=== PATIENT | female | born 1935 | race Native Hawaiian/Other Pacific Islander ===

== ENCOUNTER 2016-02-08 09:08 | Inpatient (IN) | payer OTHER | END 2016-03-10 08:00 | disposition still patient (30) | LOC: PAVB 09:08 | PROVIDERS: ADMIT Internal Medicine | DX: Z51.89 Encounter for other specified aftercare (principal) ==

== ENCOUNTER → 2016-04-10 10:55 | Inpatient (IN) | payer OTHER ==
[~2016-04-10 10:55] MED LIST: ALEN70TA19 PO; AMLO2.5T PO; ASCO500T18 PO; CALCIUM + D600 MG PO; CREON24000 UNT PO; DIPH2.5T76 PO; DIVA500T2 PO; EVISTA60 MG PO; GABA300C2 PO; LEVE500T5 PO; LEVO0.0218 PO; METO25TA4 PO; MV-ONE PO; OMEP20CA PO; TOBRSUS OP; TYLENOL325 MG PO; VITAMIN D31000 UNI1 PO
== END | disposition still patient (30) ==
LOC: PAVB 03-10 09:00
PROVIDERS: ADMIT Internal Medicine
DX: Z51.89 Encounter for other specified aftercare (principal)

== ENCOUNTER 2016-04-10 11:48 | Inpatient (IN) | payer OTHER ==
[2016-05-03] MEDS ORDERED: ALEN70TA19 PO (04:43)
[2016-05-03] MEDS ORDERED: AMLO2.5T PO (04:43)
[2016-05-03] MEDS ORDERED: CREON24000 UNT PO (04:48)
[2016-05-03] MEDS ORDERED: DIVA500T2 PO (04:53)
[2016-05-03] MEDS ORDERED: LEVE500T5 PO (04:54)
[2016-05-03] MEDS ORDERED: GABA300C2 PO (04:54)
[2016-05-03] MEDS ORDERED: METO25TA4 PO (04:55)
[2016-05-03] MEDS ORDERED: LEVO0.0218 PO (04:55)
[2016-05-03] MEDS ORDERED: OMEP20CA PO (04:56)
[2016-05-03] MEDS ORDERED: EVISTA60 MG PO (04:56)
[2016-05-03] MEDS ORDERED: VITAMIN D31000 UNI1 PO (04:58)
[2016-05-03] MEDS ORDERED: CALCIUM + D600 MG PO (04:59)
[2016-05-03] MEDS ORDERED: TYLENOL325 MG PO (05:00)
[2016-05-03] MEDS ORDERED: MV-ONE PO (05:02)
[2016-05-03] MEDS ORDERED: ASCO500T18 PO (05:03)
[2016-05-03] MEDS ORDERED: DIPH2.5T76 PO (05:09)
[2016-05-03] MEDS ORDERED: TOBRSUS OP (05:12)
== END 2016-05-08 12:35 | disposition still patient (30) ==
LOC: PAVB 11:48
PROVIDERS: ADMIT Internal Medicine
DX: J18.9 Pneumonia, unspecified organism (principal); F03.90 Unspecified dementia, unspecified severity, without behavioral disturbance, psychotic disturbance, mood disturbance, and anxiety; G40.89 Other seizures; N18.3 Chronic kidney disease, stage 3 (moderate); E03.9 Hypothyroidism, unspecified

== ENCOUNTER 2016-05-03 02:55 | Inpatient (IN) | payer OTHER ==
[2016-05-03] VITALS (21 sets, daily range): BP systolic 84–167; BP diastolic 40–98; TEMP 96.1–101.8
[~2016-05-03] VITALS: Ht 142.2 cm; Wt 50.9 kg
[2016-05-03] MEDS ORDERED: AMLO2.5T PO (04:43)
[2016-05-03] MEDS ORDERED: ALEN70TA19 PO (04:43)
[2016-05-03] MEDS ORDERED: CREON24000 UNT PO (04:48)
[2016-05-03] MEDS ORDERED: DIVA500T2 PO (04:53)
[2016-05-03] MEDS ORDERED: GABA300C2 PO (04:54)
[2016-05-03] MEDS ORDERED: LEVE500T5 PO (04:54)
[2016-05-03] MEDS ORDERED: LEVO0.0218 PO (04:55)
[2016-05-03] MEDS ORDERED: METO25TA4 PO (04:55)
[2016-05-03] MEDS ORDERED: EVISTA60 MG PO (04:56)
[2016-05-03] MEDS ORDERED: OMEP20CA PO (04:56)
[2016-05-03] MEDS ORDERED: VITAMIN D31000 UNI1 PO (04:58)
[2016-05-03] MEDS ORDERED: CALCIUM + D600 MG PO (04:59)
[2016-05-03] MEDS ORDERED: TYLENOL325 MG PO (05:00)
[2016-05-03] MEDS ORDERED: MV-ONE PO (05:02)
[2016-05-03] MEDS ORDERED: ASCO500T18 PO (05:03)
[2016-05-03] MEDS ORDERED: DIPH2.5T76 PO (05:09)
[2016-05-03] MEDS ORDERED: TOBRSUS OP (05:12)
--- NOTE | 2016-05-03 06:47 | NUR ---
0445- Received pt from ER via stretcher. Pt alert and oriented. Vent mask in place at 40%. NS bolus infusing to LAC via 20g. No s/s of infiltration. Assessment completed. No distress noted at this time. Pt febrile. Exp wheezing noted throughout lung muhammad. VSS per monitor. HOB elevated. Resp even and non labored. Bed in lowest position. Call light within reach. Will continue to monitor.
--- NOTE | 2016-05-03 09:15 | NUR ---
ASSISTED PT OOB UP TO BSC TO VOID, TOLERATED WELL
--- NOTE | 2016-05-03 09:40 | NUR ---
ATTEMPT LAB DRAW W/O SUCCESS.
--- NOTE | 2016-05-03 10:15 | NUR ---
LAB CALLED TO OBTAIN BLOOD, STATED THEY WERE UNABLE TO DRAW AT THIS TIME. MED SURG CALLED.
--- NOTE | 2016-05-03 10:40 | NUR ---
YOMAIRA BELLAMY RN OBTAINED BLOOD DRAW
--- NOTE | 2016-05-03 11:00 | NUR ---
SATS 98% ON VENTI MASK, PT PLACED ON NC @ 2L AT THIS TIME. WILL CONT TOO MONITOR.
[2016-05-03 11:02] LABS: PLATELET COUNT 134 K/uL (152-353)
--- NOTE | 2016-05-03 11:21 | NUR ---
NURSE PUT PATIENT ON NASAL CANNULA AT 2LPM AT 1100. SPO2 95%. NO DISTRESS NOTED.
[2016-05-03 13:04] LABS: SODIUM 136 mmol/L (136-145)
--- NOTE | 2016-05-03 14:15 | NUR ---
ASSISTED PT UP TO BSC, PT CONFUSED BY ALL THE WIRES.
--- NOTE | 2016-05-03 16:00 | NUR ---
PT SHAKING, STATED THAT SHES COLD. TEMP 100.
--- NOTE | 2016-05-03 16:00 | NUR ---
AYANA CUNNINGHAM APPLIED PER SERENA LEE PCT, PT TOLERATED WELL.
--- NOTE | 2016-05-03 16:43 | NUR ---
SPUTUM SAMPLE COLLECTED AND TAKEN TO LAB PER RESP TH. BREATHING TX GIVEN PER R.T., PT TOLERATED WELL. FAMILY AT BS
--- NOTE | 2016-05-03 17:15 | NUR ---
HR INCREASED 155, PT SHAKING EXCESSIVELY
--- NOTE | 2016-05-03 17:25 | NUR ---
EKG DONE PER R.T.
--- NOTE | 2016-05-03 17:30 | NUR ---
BS 144
--- NOTE | 2016-05-03 17:30 | NUR ---
TEMP 100.3 ORAL
--- NOTE | 2016-05-03 17:35 | NUR ---
DR DESOUZA CALLED AND GIVEN UPDATE, NEW ORDERS RECIEVED.
--- NOTE | 2016-05-03 17:52 | NUR ---
ASSISTED PT UP TO BSC, HR 146
[2016-05-03 18:01] LABS: PLATELET COUNT 145 K/uL (152-353)
--- NOTE | 2016-05-03 18:20 | NUR ---
RAMILA (PTS NEICE) CALLED AND GIVEN UPDATE ON PTS STATUS, INCREASE IN HR AFTER RECIEVING BREATHING TX AND MEDS GIVEN.
--- NOTE | 2016-05-03 18:51 | NUR ---
HR 117, ST. SATS 97% ON 3L NC, BP 123/55. PT AROUSES TO VERBAL, TEMP 99.8 ORAL. PT HAS STOPPED SHAKING, FACIAL FLUSHING.
--- NOTE | 2016-05-03 21:24 | NUR ---
NS STARTED ON PT DE JESUS. INFUSING AT 150 ML/HR.
[2016-05-04] VITALS (22 sets, daily range): BP systolic 90–135; BP diastolic 40–76; TEMP 98.2–98.8
--- NOTE | 2016-05-04 00:18 | NUR ---
PT CONTINUES TO REST QUIETLY. PT WEARING OXYGEN AT 3L VIA NASAL CANNULA. IVF'S OF NS INFUSING AT 150 ML/HR. SR ON CM. OT US UB WITHPNEUMONIA, DEHYDRATION, AND HYPOXIA. PT IS MR AND HAS HX OF DEMENTIA. AYANA CUNNINGHAM ARE ON.
--- NOTE | 2016-05-04 02:04 | NUR ---
OXYGEN SATS ARE 97 WHNEPT COUGHS AND DEEP BREATHS.
--- NOTE | 2016-05-04 03:47 | NUR ---
PT WAS UP OUT OF BED WITH ASSISTANCE TO BSC. VOIDED 800 ML OF YELLOW URINE. ASSISTED BACK TO BED. PT WAS GIVEN WATER TO DRINK. O2 SATS ARE IMPROVED AT 93 TO 94 PERCENT. CM WITH SR.
[2016-05-04 05:24] LABS: PLATELET COUNT 126 K/uL (152-353)
[2016-05-04 05:41] LABS: POTASSIUM 3.5 mmol/L (3.6-5.2)
--- NOTE | 2016-05-04 05:53 | NUR ---
BLOOD WAS COLLECTED PER LAB.
--- NOTE | 2016-05-04 08:00 | NUR ---
AM ASSESSMENT DONE. NAD NOTED AT THIS TIME.
--- NOTE | 2016-05-04 08:30 | NUR ---
PT STATED SHE DIDN'T WANT BREAKFAST SHE WANTED TO SLEEP.
--- NOTE | 2016-05-04 09:30 | NUR ---
PT UP TO BSC. PT VOIDED. PT BACK TO BED.
--- NOTE | 2016-05-04 10:03 | NUR ---
PT RESTING QUIETLY WITH EYES CLOSED. WILL CONTINUE TO MONITOR.
--- NOTE | 2016-05-04 10:20 | NUR ---
RAD HERE FOR CHEST XRAY. FAMILY AT BEDSIDE.
--- NOTE | 2016-05-04 11:41 | NUR ---
FAMILY AT BEDSIDE. PT DRINKING A MILKSHAKE.
--- NOTE | 2016-05-04 12:35 | NUR ---
DR. DESOUZA HERE TO SEE PT.
--- NOTE | 2016-05-04 14:00 | NUR ---
FAMILY AT BEDSIDE.
--- NOTE | 2016-05-04 15:11 | NUR ---
PT RESTING QUIETLY WITH EYES CLOSED. WILL CONTINUE TO MONITOR.
--- NOTE | 2016-05-04 16:15 | NUR ---
FAMILY AT BEDSIDE. FAMILY BROUGHT PIZZA FOR PT. PT EATING PIZZA.
--- NOTE | 2016-05-04 20:04 | NUR ---
PM ASSESSMENT COMPLETED. SINUS TACH AT 106 ON CM. PT AROUSES EASILY. RESP EVEN AND UNLORED. PT COUGHS OCCASSIONALLY.
--- NOTE | 2016-05-04 20:46 | NUR ---
PT UP WITH ASSISTANCE TO THE BSC. VOIDED 400 ML OF CLEAR URINE. LINENS WERE CHANGED AT THIS TIME. PERICARE GIVEN. CLEAN UNDERGARMENTS AND CLEAN PJ TOP WERE PLACED ON. REPOSITIONED PT IN BED IN LOW POSITION AND SOFT NIGHT LIGHT ON.
--- NOTE | 2016-05-04 21:07 | NUR ---
PT COUGHING. MEDICATED WITH TUSSINEX 5 ML PO.
--- NOTE | 2016-05-04 23:02 | NUR ---
EYE DROP TOBRAMYCIN. UNABLE TO SCAN.
[2016-05-05] VITALS (15 sets, daily range): BP systolic 106–132; BP diastolic 58–76; TEMP 98.1–98.9
--- NOTE | 2016-05-05 04:39 | NUR ---
PT IS SALINED LOCK AND IS NOT RECEIVING IVF. IVF D5 NOT SCANNED.
[2016-05-05 06:27] LABS: PLATELET COUNT 143 K/uL (152-353)
--- NOTE | 2016-05-05 06:27 | NUR ---
BLOOD WAS DRAWN AND SENT TO LAB. NOTED PT WITH BRUISES TO HER RIGHT FOREARM FROM PRIOR NEEDLE STICKS. THIS STICK WAS DONE TO PT'S LEFT HAND. PT WAS THEN ASSISTED TO BSC AND VOIDED 500 ML OF URINE. PT WAS ASSITED BACK TO BED AND POSITIONED IN BED.
[2016-05-05 06:36] LABS: POTASSIUM 3.3 mmol/L (3.6-5.2)
--- NOTE | 2016-05-05 07:34 | NUR ---
AM ASSESSMENT DONE.
--- NOTE | 2016-05-05 09:19 | NUR ---
PT TOOK AM MEDS BUT DID NOT WANT TO EAT BREAKFAST.
--- NOTE | 2016-05-05 09:59 | NUR ---
FAMILY AT BEDSIDE.
--- NOTE | 2016-05-05 11:00 | NUR ---
PT UP TO BSC. ASSISTED PT BACK TO BED.
--- NOTE | 2016-05-05 11:33 | NUR ---
FAMILY AT BEDSIDE. NAD NOTED AT THIS TIME.
--- NOTE | 2016-05-05 12:18 | NUR ---
PT SITTING UP EATING LUNCH. FAMILY AT BEDSIDE.
--- NOTE | 2016-05-05 12:20 | NUR ---
DR. DESOUZA HERE TO SEE PT.
--- NOTE | 2016-05-05 14:30 | NUR ---
PT UP TO BSC. PT BACK TO BED.
--- NOTE | 2016-05-05 15:50 | NUR ---
PT RESTING QUIETLY WITH EYES CLOSED.
--- NOTE | 2016-05-05 17:26 | NUR ---
PT TRANSFERRED TO ROOM 1108 VIA WC IN STABLE COND. ORIENTED PT TO ROOM SURROUNDINGS AND CALL LIGHT.
[2016-05-06 00:10] VITALS: BP 130/59; TEMP 98.7
[2016-05-06 04:18] VITALS: BP 123/72; TEMP 98.6
[2016-05-06 08:18] VITALS: BP 131/69; TEMP 97.6
--- NOTE | 2016-05-06 08:31 | NUR ---
05/06/16 AT 0605ATTEMPTED TO FLUSH 20G IV IN R FA, NOTED LEAKING, TIGHTENED IV HUB AND IV SITE NOTED TO BE LEAKING FROM AROUND INSERTION SITE AND PAINFUL PER PT. IV REMOVED AT THIS TIME. ATTEMPTED TO FLUSH 20G IV IN L AC, NOTED LEAKING FROM AROUND INSERTION SITE, IV REMOVED AT THIS TIME. PT TOLERATED BOTH WITH NO PROBLEMS. WILL OBTAIN NEW IV SITE AND IVPB MEDICATIONS WILL BE GIVEN ONE IV IS OBTAINED.
--- NOTE | 2016-05-06 09:20 | NUR ---
05/06/[id number] TO START NEW IV SITE X1 STICK, UNABLE TO OBTAIN SITE.
[2016-05-06 10:26] LABS: POTASSIUM 4.1 mmol/L (3.6-5.2)
[2016-05-06 11:05] LABS: PLATELET COUNT 161 K/uL (152-353)
[2016-05-06 12:03] VITALS: BP 111/63; TEMP 98.6
--- NOTE | 2016-05-06 13:21 | NUR ---
REPORT GIVEN TO ARTIS KELLER ON [facility] AT [place]. PT GIVEN BATH PER STUDENTS. PT OUT VIA W/C WITH NAD. IV SITE LEFT INTACT AND WRAPPED WITH MESERET DUE TO PT [facility]
== END 2016-05-06 13:15 | DRG 194 ==
LOC: EDP 02:55 → ICU 04:14 → MED/SURG 05-05 17:26
PROVIDERS: Emergency Medicine; ADMIT Specialist
DX: J18.9 Pneumonia, unspecified organism (principal); G40.802 Other epilepsy, not intractable, without status epilepticus; Y95 Nosocomial condition; D72.828 Other elevated white blood cell count; E11.9 Type 2 diabetes mellitus without complications; D75.89 Other specified diseases of blood and blood-forming organs; E83.42 Hypomagnesemia; E87.6 Hypokalemia; I95.89 Other hypotension; E86.0 Dehydration
CPT/HCPCS: 36415; 36591; 36600; 80048; 80053; 80164; 81000; 82542; 82550; 82553; 82607; 82805; 82948; 82962; 83605; 83735; 83880; 84100; 84443; 84484; 85027; 85610; 87040; 87070; 87205; 93005; 94664; 94760; 96361; 96365; 96372; 99285; J0610; J0696; J1720; J2060

== ENCOUNTER 2016-05-08 12:55 | Inpatient (IN) | payer OTHER | END 2016-06-08 08:11 | disposition still patient (30) | LOC: PAVB 12:55 | PROVIDERS: ADMIT Internal Medicine | DX: Z51.89 Encounter for other specified aftercare (principal) ==

== ENCOUNTER 2016-05-10 18:45 | Outpatient (CLI) | payer OTHER | END 2016-05-10 19:50 | disposition home or self-care (01) | LOC: RAD 18:45 | DX: J18.8 Other pneumonia, unspecified organism (principal) ==

== ENCOUNTER 2016-06-08 09:11 | Inpatient (IN) | payer OTHER | END 2016-07-08 08:30 | disposition still patient (30) | LOC: PAVB 09:11 → PAVA 06-14 10:49 | PROVIDERS: ADMIT Internal Medicine | DX: Z51.89 Encounter for other specified aftercare (principal) ==

== ENCOUNTER 2016-06-11 05:45 | Outpatient (CLI) | payer OTHER ==
[2016-06-11 07:02] LABS: PLATELET COUNT 191 K/uL (152-353)
[2016-06-11 10:39] LABS: POTASSIUM 3.8 mmol/L (3.6-5.2)
== END 2016-06-11 06:45 | disposition home or self-care (01) ==
LOC: LAB 05:45
PROVIDERS: Internal Medicine
DX: E03.8 Other specified hypothyroidism (principal); Z51.81 Encounter for therapeutic drug level monitoring; I12.9 Hypertensive chronic kidney disease with stage 1 through stage 4 chronic kidney disease, or unspecified chronic kidney disease; N18.3 Chronic kidney disease, stage 3 (moderate)
CPT/HCPCS: 80053; 80164; 82306; 82542; 84443; 85027

== ENCOUNTER 2016-07-01 16:52 | Outpatient (CLI) | payer OTHER | END 2016-07-01 19:36 | disposition home or self-care (01) | LOC: LAB 16:52 | DX: Z16.24 Resistance to multiple antibiotics (principal) | CPT/HCPCS: 87081 ==

== ENCOUNTER 2016-07-08 08:47 | Inpatient (IN) | payer OTHER | END 2016-08-08 08:10 | disposition still patient (30) | LOC: PAVA 08:47 | PROVIDERS: ADMIT Internal Medicine | DX: Z51.89 Encounter for other specified aftercare (principal) ==

== ENCOUNTER 2016-08-08 08:24 | Inpatient (IN) | payer OTHER | END 2016-09-07 14:57 | disposition still patient (30) | LOC: PAVA 08:24 | PROVIDERS: ADMIT Internal Medicine | DX: Z51.89 Encounter for other specified aftercare (principal) ==

== ENCOUNTER 2016-09-07 15:08 | Inpatient (IN) | payer OTHER | END 2016-10-08 08:33 | disposition still patient (30) | LOC: PAVA 15:08 | PROVIDERS: ADMIT Internal Medicine | DX: Z51.89 Encounter for other specified aftercare (principal) ==

== ENCOUNTER 2016-10-08 09:11 | Inpatient (IN) | payer OTHER | END 2016-11-08 08:10 | disposition still patient (30) | LOC: PAVA 09:11 | PROVIDERS: ADMIT Internal Medicine | DX: Z51.89 Encounter for other specified aftercare (principal) ==

== ENCOUNTER 2016-11-08 08:26 | Inpatient (IN) | payer OTHER | END 2016-12-08 09:08 | disposition still patient (30) | LOC: PAVA 08:26 | PROVIDERS: ADMIT Internal Medicine | DX: Z51.89 Encounter for other specified aftercare (principal) ==

== ENCOUNTER 2016-12-08 09:22 | Inpatient (IN) | payer OTHER | END 2017-01-08 10:24 | disposition still patient (30) | LOC: PAVA 09:22 | PROVIDERS: ADMIT Internal Medicine ==

== ENCOUNTER 2016-12-09 06:07 | Outpatient (CLI) | payer OTHER ==
[2016-12-09 07:34] LABS: PLATELET COUNT 189 K/uL (152-353)
[2016-12-09 07:58] LABS: POTASSIUM 4.6 mmol/L (3.6-5.2)
== END 2016-12-09 07:10 | disposition home or self-care (01) ==
LOC: LAB 06:07
PROVIDERS: Internal Medicine
DX: I10 Essential (primary) hypertension (principal); E03.8 Other specified hypothyroidism; Z51.81 Encounter for therapeutic drug level monitoring; N18.3 Chronic kidney disease, stage 3 (moderate)
CPT/HCPCS: 36415; 80053; 80164; 82306; 82542; 84443; 85027

== ENCOUNTER 2017-01-08 12:22 | Inpatient (IN) | payer OTHER | END 2017-02-07 08:12 | disposition still patient (30) | LOC: PAVA 12:22 | PROVIDERS: ADMIT Internal Medicine ==

== ENCOUNTER 2017-02-07 08:53 | Inpatient (IN) | payer OTHER | END 2017-03-10 08:29 | disposition still patient (30) | LOC: PAVA 08:53 | PROVIDERS: ADMIT Internal Medicine ==

== ENCOUNTER 2017-03-07 14:00 | Outpatient (CLI) | payer OTHER | END 2017-03-07 22:14 | disposition home or self-care (01) | LOC: RAD 14:00 | DX: J06.9 Acute upper respiratory infection, unspecified (principal) ==

== ENCOUNTER 2017-03-10 09:05 | Inpatient (IN) | payer OTHER | END 2017-04-10 08:30 | disposition still patient (30) | LOC: PAVA 09:05 | PROVIDERS: ADMIT Internal Medicine ==

== ENCOUNTER 2017-04-10 09:27 | Inpatient (IN) | payer OTHER | END 2017-05-08 08:07 | disposition still patient (30) | LOC: PAVA 09:27 | PROVIDERS: ADMIT Internal Medicine ==

== ENCOUNTER 2017-05-08 08:46 | Inpatient (IN) | payer OTHER | END 2017-06-08 08:00 | disposition still patient (30) | LOC: PAVA 08:46 | PROVIDERS: ADMIT Internal Medicine ==

== ENCOUNTER 2017-06-08 09:00 | Inpatient (IN) | payer OTHER | END 2017-07-08 08:11 | disposition still patient (30) | LOC: PAVA 09:00 | PROVIDERS: ADMIT Internal Medicine ==

== ENCOUNTER 2017-07-08 08:43 | Inpatient (IN) | payer OTHER | END 2017-08-08 08:20 | disposition still patient (30) | LOC: PAVA 08:43 | PROVIDERS: ADMIT Internal Medicine ==

== ENCOUNTER 2017-08-08 08:35 | Inpatient (IN) | payer OTHER | END 2017-09-07 14:14 | disposition still patient (30) | LOC: PAVA 08:35 | PROVIDERS: ADMIT Internal Medicine ==

== ENCOUNTER 2017-09-07 14:29 | Inpatient (IN) | payer OTHER | END 2017-10-08 08:00 | disposition still patient (30) | LOC: PAVA 14:29 | PROVIDERS: ADMIT Internal Medicine ==

== ENCOUNTER 2017-10-08 09:00 | Inpatient (IN) | payer OTHER | END 2017-11-08 09:56 | disposition still patient (30) | LOC: PAVA 09:00 | PROVIDERS: ADMIT Internal Medicine ==

== ENCOUNTER 2017-11-08 10:07 | Inpatient (IN) | payer OTHER | END 2017-12-08 08:39 | disposition still patient (30) | LOC: PAVA 10:07 | PROVIDERS: ADMIT Internal Medicine ==

== ENCOUNTER 2017-12-08 06:44 | Outpatient (CLI) | payer OTHER ==
[2017-12-08 07:50] LABS: PLATELET COUNT 210 K/uL (152-353)
[2017-12-08 08:06] LABS: POTASSIUM 4.4 mmol/L (3.6-5.2)
== END 2017-12-08 19:51 | disposition home or self-care (01) ==
LOC: LAB 06:44
PROVIDERS: Internal Medicine
DX: R79.89 Other specified abnormal findings of blood chemistry (principal); G40.909 Epilepsy, unspecified, not intractable, without status epilepticus; R94.6 Abnormal results of thyroid function studies
CPT/HCPCS: 80053; 80164; 82306; 82542; 82607; 84443; 85027

== ENCOUNTER 2017-12-08 08:56 | Inpatient (IN) | payer OTHER | END 2018-01-08 08:10 | disposition still patient (30) | LOC: PAVA 08:56 | PROVIDERS: ADMIT Internal Medicine ==

== ENCOUNTER 2017-12-28 12:44 | Emergency (ER) | payer OTHER ==
[~2017-12-28] VITALS: Ht 149.9 cm; Wt 52.2 kg
[2017-12-28 12:44] VITALS: TEMP 97.9
[2017-12-28 15:15] VITALS: BP 137/72
== END 2017-12-28 15:15 | disposition home or self-care (01) ==
LOC: ED 12:44
DX: S60.221A Contusion of right hand, initial encounter (principal); S80.01XA Contusion of right knee, initial encounter; S00.83XA Contusion of other part of head, initial encounter; W10.1XXA Fall (on)(from) sidewalk curb, initial encounter; Y92.511 Restaurant or cafe as the place of occurrence of the external cause
CPT/HCPCS: 99283

== ENCOUNTER 2018-01-01 16:26 | Outpatient (CLI) | payer OTHER | END 2018-01-01 19:49 | disposition home or self-care (01) | LOC: LAB 16:26 | DX: Z91.81 History of falling (principal) | CPT/HCPCS: 81000 ==

== ENCOUNTER 2018-01-08 04:19 | Outpatient (CLI) | payer OTHER | END 2018-01-08 21:48 | disposition home or self-care (01) | LOC: LAB 04:19 | DX: R94.6 Abnormal results of thyroid function studies (principal) | CPT/HCPCS: 84443 ==

== ENCOUNTER 2018-01-08 08:24 | Inpatient (IN) | payer OTHER | END 2018-02-07 08:04 | disposition still patient (30) | LOC: PAVA 08:24 | PROVIDERS: ADMIT Internal Medicine ==

== ENCOUNTER 2018-02-07 08:16 | Inpatient (IN) | payer OTHER | END 2018-03-10 10:20 | disposition still patient (30) | LOC: PAVA 08:16 | PROVIDERS: ADMIT Internal Medicine ==

== ENCOUNTER 2018-02-13 11:42 | Outpatient (CLI) | payer OTHER | END 2018-02-13 23:13 | disposition home or self-care (01) | LOC: RAD 11:42 | DX: Z78.0 Asymptomatic menopausal state (principal) ==

== ENCOUNTER 2018-03-10 10:45 | Inpatient (IN) | payer OTHER | END 2018-04-10 14:16 | disposition still patient (30) | LOC: PAVA 10:45 | PROVIDERS: ADMIT Internal Medicine ==

== ENCOUNTER 2018-04-10 14:31 | Inpatient (IN) | payer OTHER | END 2018-05-08 09:14 | disposition still patient (30) | LOC: PAVA 14:31 | PROVIDERS: ADMIT Internal Medicine ==

== ENCOUNTER 2018-05-08 09:43 | Inpatient (IN) | payer OTHER | END 2018-06-08 07:54 | disposition still patient (30) | LOC: PAVA 09:43 | PROVIDERS: ADMIT Internal Medicine ==

== ENCOUNTER 2018-06-08 08:28 | Inpatient (IN) | payer OTHER | END 2018-07-08 09:38 | disposition still patient (30) | LOC: PAVA 08:28 | PROVIDERS: ADMIT Internal Medicine ==

== ENCOUNTER 2018-06-11 05:42 | Outpatient (CLI) | payer OTHER ==
[2018-06-11 06:29] LABS: PLATELET COUNT 223 K/uL (152-353)
[2018-06-11 06:50] LABS: POTASSIUM 4.4 mmol/L (3.6-5.2)
== END 2018-06-11 19:09 | disposition home or self-care (01) ==
LOC: LAB 05:42
PROVIDERS: Internal Medicine
DX: Z51.89 Encounter for other specified aftercare (principal); G40.89 Other seizures; I10 Essential (primary) hypertension; E03.8 Other specified hypothyroidism; N18.3 Chronic kidney disease, stage 3 (moderate); M85.80 Other specified disorders of bone density and structure, unspecified site
CPT/HCPCS: 80053; 80164; 82306; 82542; 84443; 85027

== ENCOUNTER 2018-07-08 10:43 | Inpatient (IN) | payer OTHER | END 2018-08-08 08:12 | disposition still patient (30) | LOC: PAVA 10:43 | PROVIDERS: ADMIT Internal Medicine | DX: Z51.89 Encounter for other specified aftercare (principal) ==

== ENCOUNTER 2018-07-24 14:48 | Outpatient (CLI) | payer OTHER | END 2018-07-24 19:41 | disposition home or self-care (01) | LOC: US 14:48 | DX: M79.661 Pain in right lower leg (principal); R22.41 Localized swelling, mass and lump, right lower limb ==

== ENCOUNTER 2018-07-28 12:31 | Outpatient (CLI) | payer OTHER | END 2018-07-28 19:24 | disposition home or self-care (01) | LOC: LAB 12:31 | DX: D51.8 Other vitamin B12 deficiency anemias (principal) | CPT/HCPCS: 82607 ==

== ENCOUNTER 2018-08-08 08:24 | Inpatient (IN) | payer OTHER | END 2018-09-07 08:29 | disposition still patient (30) | LOC: PAVA 08:24 | PROVIDERS: ADMIT Internal Medicine ==

== ENCOUNTER 2018-09-07 09:10 | Inpatient (IN) | payer OTHER | END 2018-10-08 09:07 | disposition still patient (30) | LOC: PAVA 09:10 | PROVIDERS: ADMIT Internal Medicine ==

== ENCOUNTER 2018-10-08 09:49 | Inpatient (IN) | payer OTHER | END 2018-11-08 15:57 | disposition still patient (30) | LOC: PAVA 09:49 | PROVIDERS: ADMIT Internal Medicine ==

== ENCOUNTER 2018-11-08 16:14 | Inpatient (IN) | payer OTHER | END 2018-12-08 08:04 | disposition still patient (30) | LOC: PAVA 16:14 | PROVIDERS: ADMIT Internal Medicine ==

== ENCOUNTER 2018-12-08 08:57 | Inpatient (IN) | payer OTHER | END 2019-01-08 08:51 | disposition still patient (30) | LOC: PAVA 08:57 | PROVIDERS: ADMIT Internal Medicine ==

== ENCOUNTER 2018-12-09 06:40 | Outpatient (CLI) | payer OTHER ==
[2018-12-09 07:15] LABS: PLATELET COUNT 57 K/uL (152-353)
[2018-12-09 07:59] LABS: POTASSIUM 4.7 mmol/L (3.6-5.2)
== END 2018-12-09 23:47 | disposition home or self-care (01) ==
LOC: LAB 06:40
PROVIDERS: Internal Medicine
DX: I10 Essential (primary) hypertension (principal); Z79.899 Other long term (current) drug therapy
CPT/HCPCS: 80053; 80164; 82306; 82542; 84443; 85027

== ENCOUNTER 2019-01-08 10:51 | Inpatient (IN) | payer OTHER | END 2019-02-07 08:00 | disposition still patient (30) | LOC: PAVA 10:51 | PROVIDERS: ADMIT Internal Medicine ==

== ENCOUNTER 2019-02-07 08:30 | Inpatient (IN) | payer OTHER | END 2019-03-10 07:59 | disposition still patient (30) | LOC: PAVA 08:30 | PROVIDERS: ADMIT Internal Medicine ==

== ENCOUNTER 2019-03-10 08:22 | Inpatient (IN) | payer OTHER | END 2019-04-10 09:30 | disposition still patient (30) | LOC: PAVA 08:22 | PROVIDERS: ADMIT Internal Medicine ==

== ENCOUNTER 2019-04-10 09:43 | Inpatient (IN) | payer OTHER | END 2019-05-09 12:44 | disposition still patient (30) | LOC: PAVA 09:43 | PROVIDERS: ADMIT Internal Medicine ==

== ENCOUNTER 2019-05-09 12:58 | Inpatient (IN) | payer OTHER | END 2019-06-09 08:58 | disposition still patient (30) | LOC: PAVA 12:58 | PROVIDERS: ADMIT Internal Medicine ==

== ENCOUNTER 2019-06-09 09:18 | Inpatient (IN) | payer OTHER | END 2019-07-09 08:02 | disposition still patient (30) | LOC: PAVA 09:18 | PROVIDERS: ADMIT Internal Medicine ==

== ENCOUNTER 2019-07-08 12:56 | Outpatient (CLI) | payer OTHER | END 2019-07-08 20:42 | disposition home or self-care (01) | LOC: LABW 12:56 | DX: R10.9 Unspecified abdominal pain (principal); R82.998 Other abnormal findings in urine | CPT/HCPCS: 81000 ==

== ENCOUNTER 2019-07-09 08:33 | Inpatient (IN) | payer OTHER | END 2019-08-09 08:11 | disposition still patient (30) | LOC: PAVA 08:33 | PROVIDERS: ADMIT Internal Medicine | CPT/HCPCS: 87635; U0002 ==

== ENCOUNTER 2019-07-27 10:57 | Outpatient (CLI) | payer OTHER ==
[2019-07-27 11:16] LABS: PLATELET COUNT 230 K/uL (152-353)
[2019-07-27 11:17] LABS: POTASSIUM 3.6 mmol/L (3.6-5.2)
== END 2019-07-27 19:11 | disposition home or self-care (01) ==
LOC: LAB 10:57
PROVIDERS: Nurse Practitioner
DX: U07.1 COVID-19 (principal); Z79.899 Other long term (current) drug therapy
CPT/HCPCS: 80053; 85027; 85379

== ENCOUNTER 2019-08-09 08:23 | Inpatient (IN) | payer OTHER | END 2019-09-08 08:25 | disposition still patient (30) | LOC: PAVA 08:23 | PROVIDERS: ADMIT Internal Medicine ==

== ENCOUNTER 2019-09-08 08:55 | Inpatient (IN) | payer OTHER | END 2019-10-09 08:22 | disposition still patient (30) | LOC: PAVA 08:55 | PROVIDERS: ADMIT Internal Medicine ==

== ENCOUNTER 2019-10-09 08:50 | Inpatient (IN) | payer OTHER ==
[2019-11-09] MEDS ORDERED: DIVALPROEX500 MG PO (13:03)
[2019-11-09] MEDS ORDERED: DIVA250T2 PO (13:04)
[2019-11-09] MEDS ORDERED: LEVO0.0529 PO (13:10)
[2019-11-09] MEDS ORDERED: AMLODIPINE BESYLATE PO (13:18)
[2019-11-09] MEDS ORDERED: XARELTO15 MG PO (13:22)
[2019-11-09] MEDS ORDERED: CEFUROXIME500 MG PO (13:34)
[2019-11-09] MEDS ORDERED: MEGACE PO (13:36)
[2019-11-09] MEDS ORDERED: [UNRECOGNIZED DRUG - OTHER] PO (13:37)
[2019-11-09] MEDS ORDERED: HEALTHY EYES PO (13:37)
[2019-11-09] MEDS ORDERED: ENSURE PLUS PO (13:39)
[2019-11-09] MEDS ORDERED: AZIT250T3 PO (13:55)
== END 2019-11-09 10:40 | disposition still patient (30) ==
LOC: PAVA 08:50
PROVIDERS: ADMIT Internal Medicine

== ENCOUNTER 2019-10-25 07:35 | Outpatient (CLI) | payer OTHER ==
[2019-10-25 15:31] LABS: POTASSIUM 3.8 mmol/L (3.6-5.2)
== END 2019-10-25 20:23 | disposition home or self-care (01) ==
LOC: LAB 07:35 → RAD 07:35
PROVIDERS: Internal Medicine
DX: M79.652 Pain in left thigh (principal); R60.0 Localized edema; I82.401 Acute embolism and thrombosis of unspecified deep veins of right lower extremity
CPT/HCPCS: 80048

== ENCOUNTER 2019-10-25 19:40 | Outpatient (CLI) | payer OTHER | END 2019-10-25 21:32 | disposition home or self-care (01) | LOC: LAB 19:40 | DX: I82.401 Acute embolism and thrombosis of unspecified deep veins of right lower extremity (principal) | CPT/HCPCS: 82570 ==

== ENCOUNTER 2019-10-31 10:46 | Outpatient (CLI) | payer OTHER ==
[2019-10-31 11:22] LABS: PLATELET COUNT 389 K/uL (152-353)
[2019-10-31 11:28] LABS: POTASSIUM 4.1 mmol/L (3.6-5.2)
== END 2019-10-31 22:36 | disposition home or self-care (01) ==
LOC: RAD 10:46 → LABW 10:46 → RAD 22:36
PROVIDERS: Internal Medicine
DX: R14.0 Abdominal distension (gaseous) (principal); I82.492 Acute embolism and thrombosis of other specified deep vein of left lower extremity; J18.9 Pneumonia, unspecified organism
CPT/HCPCS: 80053; 83630; 85007; 85027; 87324; 87328; 87329; 87449

== ENCOUNTER 2019-11-02 13:27 | Inpatient (IN) | payer OTHER ==
[~2019-11-02] VITALS: Ht 172.7 cm; Wt 56.7 kg
[2019-11-02 18:26] LABS: PLATELET COUNT 394 K/uL (152-353)
[2019-11-02 18:39] LABS: POTASSIUM 4.1 mmol/L (3.6-5.2)
[2019-11-02 19:06] VITALS: BP 119/57; TEMP 98.2; Ht 172.7 cm; Wt 56.7 kg
[2019-11-02 19:36] VITALS: BP 111/55; TEMP 98.3
[2019-11-03] VITALS (7 sets, daily range): BP systolic 102–116; BP diastolic 48–59; TEMP 97.5–99.6
[2019-11-03 05:57] LABS: POTASSIUM 3.8 mmol/L (3.6-5.2)
[2019-11-03 06:10] LABS: PLATELET COUNT 372 K/uL (152-353)
[2019-11-04 04:00] VITALS: BP 93/40; TEMP 98.3
[2019-11-04 05:10] LABS: POTASSIUM 3.8 mmol/L (3.6-5.2)
[2019-11-04 05:44] LABS: PLATELET COUNT 356 K/uL (152-353)
[2019-11-04 08:00] VITALS: BP 158/53; TEMP 98.1
[2019-11-04 12:00] VITALS: BP 123/66; TEMP 98.2
[2019-11-04 16:00] VITALS: BP 114/56; TEMP 98.6
[2019-11-04 20:00] VITALS: BP 124/61; TEMP 98.1
[2019-11-05] VITALS: BP 117/55; TEMP 98.1
[2019-11-05 04:00] VITALS: BP 139/58; TEMP 98.3
[2019-11-05 04:38] LABS: POTASSIUM 4.3 mmol/L (3.6-5.2)
[2019-11-05 05:18] LABS: PLATELET COUNT 378 K/uL (152-353)
[2019-11-05 07:40] VITALS: BP 101/51; TEMP 98.5
[2019-11-05 12:00] VITALS: BP 109/57; TEMP 98.1
[2019-11-05 15:47] VITALS: BP 125/54; TEMP 98.4
[2019-11-05 20:00] VITALS: BP 119/56; TEMP 98.3
[2019-11-06] VITALS (7 sets, daily range): BP systolic 96–116; BP diastolic 37–72; TEMP 97.4–98.7
[2019-11-06 06:02] LABS: PLATELET COUNT 399 K/uL (152-353)
[2019-11-06 06:03] LABS: POTASSIUM 4.1 mmol/L (3.6-5.2)
[2019-11-07 03:58] VITALS: BP 110/59; TEMP 98.2
[2019-11-07 06:22] LABS: PLATELET COUNT 332 K/uL (152-353); POTASSIUM 3.3 mmol/L (3.6-5.2)
[2019-11-07 08:00] VITALS: BP 106/50; TEMP 98.2
[2019-11-07 11:57] VITALS: BP 112/49; TEMP 97.5
[2019-11-07 16:00] VITALS: BP 112/55; TEMP 98.3
[2019-11-07 20:00] VITALS: BP 104/44; TEMP 97.5
[2019-11-08] VITALS: BP 93/30; TEMP 97.9
[2019-11-08 04:00] VITALS: BP 108/56; TEMP 97.5
[2019-11-08 05:37] LABS: POTASSIUM 3.7 mmol/L (3.6-5.2)
[2019-11-08 05:40] LABS: PLATELET COUNT 370 K/uL (152-353)
[2019-11-08 08:00] VITALS: BP 108/45; TEMP 97.5
[2019-11-08 12:00] VITALS: BP 105/46; TEMP 97.9
[2019-11-08 16:00] VITALS: BP 107/47; TEMP 97.9
[2019-11-08 20:00] VITALS: BP 114/55; TEMP 98.8
[2019-11-09 00:14] VITALS: BP 138/60; TEMP 98.9
[2019-11-09 04:02] VITALS: BP 111/50; TEMP 98.3
[2019-11-09 08:00] VITALS: BP 122/51; TEMP 98.5
[2019-11-09 12:00] VITALS: BP 125/46; TEMP 98.2
[2019-11-09] MEDS ORDERED: DIVALPROEX500 MG PO (13:03)
[2019-11-09] MEDS ORDERED: DIVA250T2 PO (13:04)
[2019-11-09] MEDS ORDERED: LEVO0.0529 PO (13:10)
[2019-11-09] MEDS ORDERED: AMLODIPINE BESYLATE PO (13:18)
[2019-11-09] MEDS ORDERED: XARELTO15 MG PO (13:22)
[2019-11-09] MEDS ORDERED: CEFUROXIME500 MG PO (13:34)
[2019-11-09] MEDS ORDERED: MEGACE PO (13:36)
[2019-11-09] MEDS ORDERED: [UNRECOGNIZED DRUG - OTHER] PO (13:37)
[2019-11-09] MEDS ORDERED: HEALTHY EYES PO (13:37)
[2019-11-09] MEDS ORDERED: ENSURE PLUS PO (13:39)
[2019-11-09] MEDS ORDERED: AZIT250T3 PO (13:55)
== END 2019-11-09 15:10 | DRG 193 ==
LOC: RAD 13:27 → MED/SURG 17:10
PROVIDERS: Internal Medicine Endocrinology, Diabetes & Metabolism; ADMIT Internal Medicine
DX: J18.8 Other pneumonia, unspecified organism (principal); J96.01 Acute respiratory failure with hypoxia; E43 Unspecified severe protein-calorie malnutrition; G40.802 Other epilepsy, not intractable, without status epilepticus; N17.8 Other acute kidney failure; I82.4Z2 Acute embolism and thrombosis of unspecified deep veins of left distal lower extremity; E03.8 Other specified hypothyroidism; K21.9 Gastro-esophageal reflux disease without esophagitis; F03.90 Unspecified dementia, unspecified severity, without behavioral disturbance, psychotic disturbance, mood disturbance, and anxiety; K86.89 Other specified diseases of pancreas; I12.9 Hypertensive chronic kidney disease with stage 1 through stage 4 chronic kidney disease, or unspecified chronic kidney disease; N18.3 Chronic kidney disease, stage 3 (moderate)
CPT/HCPCS: 36415; 80048; 80053; 83605; 83880; 84443; 85007; 85027; 87040; 94760; J1956; J2020; J2543

== ENCOUNTER 2019-11-09 11:20 | Inpatient (IN) | payer OTHER ==
[2019-11-09] MEDS ORDERED: DIVALPROEX500 MG PO (13:03)
[2019-11-09] MEDS ORDERED: DIVA250T2 PO (13:04)
[2019-11-09] MEDS ORDERED: LEVO0.0529 PO (13:10)
[2019-11-09] MEDS ORDERED: AMLODIPINE BESYLATE PO (13:18)
[2019-11-09] MEDS ORDERED: XARELTO15 MG PO (13:22)
[2019-11-09] MEDS ORDERED: CEFUROXIME500 MG PO (13:34)
[2019-11-09] MEDS ORDERED: MEGACE PO (13:36)
[2019-11-09] MEDS ORDERED: [UNRECOGNIZED DRUG - OTHER] PO (13:37)
[2019-11-09] MEDS ORDERED: HEALTHY EYES PO (13:37)
[2019-11-09] MEDS ORDERED: ENSURE PLUS PO (13:39)
[2019-11-09] MEDS ORDERED: AZIT250T3 PO (13:55)
[2019-11-19 16:33] LABS: PLATELET COUNT 412 K/uL (152-353)
== END 2019-12-09 09:28 | disposition still patient (30) ==
LOC: PAVA 11:20
PROVIDERS: ADMIT Internal Medicine
DX: J18.9 Pneumonia, unspecified organism (principal); I82.402 Acute embolism and thrombosis of unspecified deep veins of left lower extremity; M62.81 Muscle weakness (generalized); R26.2 Difficulty in walking, not elsewhere classified; Z74.1 Need for assistance with personal care; F03.90 Unspecified dementia, unspecified severity, without behavioral disturbance, psychotic disturbance, mood disturbance, and anxiety; G40.909 Epilepsy, unspecified, not intractable, without status epilepticus; F33.9 Major depressive disorder, recurrent, unspecified; M85.80 Other specified disorders of bone density and structure, unspecified site; N18.3 Chronic kidney disease, stage 3 (moderate); I12.9 Hypertensive chronic kidney disease with stage 1 through stage 4 chronic kidney disease, or unspecified chronic kidney disease
CPT/HCPCS: 81000; 82272; 83630; 85027; 87015; 87045; 87324; 87328; 87329; 87449; 87899

== ENCOUNTER 2019-12-09 10:48 | Inpatient (IN) | payer OTHER ==
[~2019-12-09 10:48] MED LIST changes: +AMLODIPINE BESYLATE PO; +AZIT250T3 PO; +CEFUROXIME500 MG PO; +DIVA250T2 PO; +DIVALPROEX500 MG PO; +ENSURE PLUS PO; +HEALTHY EYES PO; +LEVO0.0529 PO; +MEGACE PO; +XARELTO15 MG PO; +[UNRECOGNIZED DRUG - OTHER] PO
[2019-12-12 07:46] LABS: PLATELET COUNT 238 K/uL (152-353)
[2019-12-12 10:03] LABS: POTASSIUM 4.1 mmol/L (3.6-5.2)
== END 2020-01-09 08:00 | disposition still patient (30) ==
LOC: PAVA 10:48
PROVIDERS: ADMIT Internal Medicine
DX: J18.9 Pneumonia, unspecified organism (principal); I82.402 Acute embolism and thrombosis of unspecified deep veins of left lower extremity; M62.81 Muscle weakness (generalized); R26.2 Difficulty in walking, not elsewhere classified; Z74.1 Need for assistance with personal care; F03.90 Unspecified dementia, unspecified severity, without behavioral disturbance, psychotic disturbance, mood disturbance, and anxiety; G40.909 Epilepsy, unspecified, not intractable, without status epilepticus; F33.9 Major depressive disorder, recurrent, unspecified; M85.80 Other specified disorders of bone density and structure, unspecified site; I12.9 Hypertensive chronic kidney disease with stage 1 through stage 4 chronic kidney disease, or unspecified chronic kidney disease
CPT/HCPCS: 80053; 80164; 82306; 82542; 84443; 85027

== ENCOUNTER 2020-01-09 09:00 | Inpatient (IN) | payer OTHER | END 2020-02-08 08:34 | disposition still patient (30) | LOC: PAVA 09:00 | PROVIDERS: ADMIT Internal Medicine; ATTEND Internal Medicine | DX: J18.9 Pneumonia, unspecified organism (principal); I82.402 Acute embolism and thrombosis of unspecified deep veins of left lower extremity; M62.81 Muscle weakness (generalized); R26.2 Difficulty in walking, not elsewhere classified; Z74.1 Need for assistance with personal care; F03.90 Unspecified dementia, unspecified severity, without behavioral disturbance, psychotic disturbance, mood disturbance, and anxiety; G40.909 Epilepsy, unspecified, not intractable, without status epilepticus; F33.9 Major depressive disorder, recurrent, unspecified; M85.80 Other specified disorders of bone density and structure, unspecified site; I12.9 Hypertensive chronic kidney disease with stage 1 through stage 4 chronic kidney disease, or unspecified chronic kidney disease ==

== ENCOUNTER 2020-02-08 08:59 | Inpatient (IN) | payer OTHER | END 2020-03-10 08:28 | disposition still patient (30) | LOC: PAVA 08:59 | PROVIDERS: ADMIT Internal Medicine; ATTEND Internal Medicine ==

== ENCOUNTER 2020-02-23 14:41 | Outpatient (CLI) | payer OTHER | END 2020-02-23 22:16 | disposition home or self-care (01) | LOC: RAD 14:41 | PROVIDERS: ATTEND Internal Medicine | DX: M85.88 Other specified disorders of bone density and structure, other site (principal) ==

== ENCOUNTER 2020-03-10 08:45 | Inpatient (IN) | payer OTHER ==
[2020-03-29] MEDS ORDERED: DIVA500T2 PO (06:58)
[2020-03-29] MEDS ORDERED: DIVA250T PO (06:59)
[2020-03-29] MEDS ORDERED: ALEN70TA19 PO (07:09)
[2020-03-29] MEDS ORDERED: XARELTO20 MG PO (07:11)
[2020-03-29] MEDS ORDERED: ALLEGRA ALRG180 M1 PO (07:12)
[2020-03-29] MEDS ORDERED: CELEXA20 MG PO (07:12)
[2020-03-29] MEDS ORDERED: METO-837 PO (07:15)
[2020-03-29] MEDS ORDERED: CEFU250T2 PO (07:17)
== END 2020-04-10 13:10 | disposition still patient (30) ==
LOC: PAVA 08:45
PROVIDERS: ADMIT Internal Medicine; ATTEND Internal Medicine
DX: J18.1 Lobar pneumonia, unspecified organism (principal); R13.12 Dysphagia, oropharyngeal phase; M62.81 Muscle weakness (generalized); R26.2 Difficulty in walking, not elsewhere classified; Z74.1 Need for assistance with personal care; I48.91 Unspecified atrial fibrillation; G40.909 Epilepsy, unspecified, not intractable, without status epilepticus; K86.89 Other specified diseases of pancreas; M85.80 Other specified disorders of bone density and structure, unspecified site; N18.30 Chronic kidney disease, stage 3 unspecified; F79 Unspecified intellectual disabilities
CPT/HCPCS: 80162

== ENCOUNTER 2020-03-27 09:01 | Outpatient (CLI) | payer OTHER ==
[2020-03-27 09:06] LABS: PLATELET COUNT 246 K/uL (152-353)
[2020-03-27 09:11] LABS: POTASSIUM 3.6 mmol/L (3.6-5.2)
== END 2020-03-27 19:20 | disposition home or self-care (01) ==
LOC: LAB 09:01 → RAD 09:01 → LAB 19:20
PROVIDERS: ATTEND Internal Medicine
DX: R05 Cough (principal); R09.02 Hypoxemia; R06.89 Other abnormalities of breathing; R09.3 Abnormal sputum
CPT/HCPCS: 80053; 83880; 85027

== ENCOUNTER 2020-03-28 17:14 | Inpatient (IN) | payer OTHER ==
[~2020-03-28] VITALS: Ht 162.6 cm; Wt 56.8 kg
[2020-03-28 18:10] VITALS: BP 97/43; TEMP 98.9; Ht 162.6 cm; Wt 56.8 kg
[2020-03-28 20:06] VITALS: BP 105/54; TEMP 97.9
[2020-03-29] VITALS (7 sets, daily range): BP systolic 106–143; BP diastolic 44–75; TEMP 98.1–100.9
[2020-03-29] MEDS ORDERED: DIVA500T2 PO (06:58)
[2020-03-29] MEDS ORDERED: DIVA250T PO (06:59)
[2020-03-29] MEDS ORDERED: ALEN70TA19 PO (07:09)
[2020-03-29] MEDS ORDERED: XARELTO20 MG PO (07:11)
[2020-03-29] MEDS ORDERED: ALLEGRA ALRG180 M1 PO (07:12)
[2020-03-29] MEDS ORDERED: CELEXA20 MG PO (07:12)
[2020-03-29] MEDS ORDERED: METO-837 PO (07:15)
[2020-03-29] MEDS ORDERED: CEFU250T2 PO (07:17)
[2020-03-30 03:40] LABS: PLATELET COUNT 223 K/uL (152-353)
[2020-03-30 03:57] LABS: POTASSIUM 3.9 mmol/L (3.6-5.2)
[2020-03-30 04:00] VITALS: BP 136/70; TEMP 98.3
[2020-03-30 08:00] VITALS: BP 137/65; TEMP 98.8
[2020-03-30 12:00] VITALS: BP 124/70; TEMP 98.7
[2020-03-30 15:41] VITALS: BP 151/58; TEMP 98.5
[2020-03-30 20:00] VITALS: BP 138/56; TEMP 99.9
[2020-03-30 23:50] VITALS: BP 100/51; TEMP 98.7
[2020-03-31 04:00] VITALS: BP 119/44; TEMP 98.5
[2020-03-31 04:28] LABS: PLATELET COUNT 235 K/uL (152-353)
[2020-03-31 04:39] LABS: POTASSIUM 3.8 mmol/L (3.6-5.2)
[2020-03-31 08:00] VITALS: BP 128/74; TEMP 98.7
[2020-03-31 12:00] VITALS: BP 138/96; TEMP 97.8
[2020-03-31 16:00] VITALS: BP 141/71; TEMP 97.9
[2020-03-31 20:00] VITALS: BP 143/69; TEMP 98.3
[2020-04-01] VITALS: BP 146/63; TEMP 98.4
[2020-04-01 04:00] VITALS: BP 141/59; TEMP 98.6
[2020-04-01 05:30] LABS: PLATELET COUNT 277 K/uL (152-353)
[2020-04-01 08:00] VITALS: BP 142/61; TEMP 98.6
[2020-04-01 12:00] VITALS: BP 144/69; TEMP 98
[2020-04-01 16:00] VITALS: BP 144/62; TEMP 98.3
[2020-04-01 20:00] VITALS: BP 155/51; TEMP 98.1
[2020-04-02 00:17] VITALS: BP 127/79; TEMP 98.1
[2020-04-02 04:11] VITALS: BP 136/65; TEMP 98.4
[2020-04-02 08:00] VITALS: BP 135/74; TEMP 97.2
[2020-04-02 12:00] VITALS: BP 147/58; TEMP 99.7
[2020-04-02 16:00] VITALS: BP 131/44; TEMP 99.2
[2020-04-02 20:00] VITALS: BP 146/62; TEMP 98.2
[2020-04-03] VITALS (7 sets, daily range): BP systolic 105–155; BP diastolic 44–63; TEMP 97.7–98.9
[2020-04-03 05:12] LABS: PLATELET COUNT 350 K/uL (152-353)
[2020-04-03 05:36] LABS: POTASSIUM 4.2 mmol/L (3.6-5.2)
[2020-04-04 04:19] VITALS: BP 124/55; TEMP 98.2
[2020-04-04 05:14] LABS: PLATELET COUNT 355 K/uL (152-353)
[2020-04-04 05:49] LABS: POTASSIUM 3.9 mmol/L (3.6-5.2)
[2020-04-04 07:58] VITALS: BP 174/64; TEMP 98.1
[2020-04-04 11:59] VITALS: BP 114/64; TEMP 98
[2020-04-04 15:56] VITALS: BP 126/92; TEMP 98.4
[2020-04-04 20:19] VITALS: BP 145/60; TEMP 99.3
[2020-04-05 00:13] VITALS: BP 128/59; TEMP 98.2
[2020-04-05 04:02] VITALS: BP 152/42; TEMP 98.8
[2020-04-05 05:07] LABS: PLATELET COUNT 383 K/uL (152-353)
[2020-04-05 05:43] LABS: POTASSIUM 4.7 mmol/L (3.6-5.2)
[2020-04-05 08:00] VITALS: BP 141/49; TEMP 98.6
[2020-04-05 12:00] VITALS: BP 136/51; TEMP 98
== END 2020-04-05 14:40 | DRG 193 ==
LOC: MED/SURG 17:14
PROVIDERS: Internal Medicine Endocrinology, Diabetes & Metabolism; ADMIT Internal Medicine; ATTEND Internal Medicine
DX: J18.8 Other pneumonia, unspecified organism (principal); E43 Unspecified severe protein-calorie malnutrition; J96.01 Acute respiratory failure with hypoxia; G40.802 Other epilepsy, not intractable, without status epilepticus; Y95 Nosocomial condition; I48.91 Unspecified atrial fibrillation; Z79.01 Long term (current) use of anticoagulants; E03.8 Other specified hypothyroidism; F03.90 Unspecified dementia, unspecified severity, without behavioral disturbance, psychotic disturbance, mood disturbance, and anxiety; I95.89 Other hypotension; K21.9 Gastro-esophageal reflux disease without esophagitis; I12.9 Hypertensive chronic kidney disease with stage 1 through stage 4 chronic kidney disease, or unspecified chronic kidney disease; N18.30 Chronic kidney disease, stage 3 unspecified; K86.89 Other specified diseases of pancreas; F70 Mild intellectual disabilities; R13.19 Other dysphagia; R05 Cough; R09.02 Hypoxemia; R06.89 Other abnormalities of breathing; R09.3 Abnormal sputum
CPT/HCPCS: 36415; 80048; 80053; 80162; 83880; 84443; 85007; 85027; 94664; 94760; J1956; J0696; J1160; J2405; J3490

== ENCOUNTER 2020-04-10 14:08 | Inpatient (IN) | payer OTHER ==
[~2020-04-10 14:08] MED LIST changes: +ALLEGRA ALRG180 M1 PO; +CEFU250T2 PO; +CELEXA20 MG PO; +DIVA250T PO; +METO-837 PO; +XARELTO20 MG PO
== END 2020-05-08 08:40 | disposition still patient (30) ==
LOC: PAVA 14:08
PROVIDERS: ADMIT Internal Medicine; ATTEND Internal Medicine
DX: J18.1 Lobar pneumonia, unspecified organism (principal); R13.12 Dysphagia, oropharyngeal phase; M62.81 Muscle weakness (generalized); R26.2 Difficulty in walking, not elsewhere classified; Z74.1 Need for assistance with personal care; I48.91 Unspecified atrial fibrillation; G40.909 Epilepsy, unspecified, not intractable, without status epilepticus; K86.89 Other specified diseases of pancreas; M85.80 Other specified disorders of bone density and structure, unspecified site; N18.30 Chronic kidney disease, stage 3 unspecified; F79 Unspecified intellectual disabilities
CPT/HCPCS: 80162

== ENCOUNTER 2020-05-08 08:54 | Inpatient (IN) | payer OTHER | END 2020-06-08 08:33 | disposition still patient (30) | LOC: PAVA 08:54 | PROVIDERS: ADMIT Internal Medicine; ATTEND Internal Medicine ==

== ENCOUNTER 2020-06-08 09:35 | Inpatient (IN) | payer OTHER | END 2020-07-08 11:57 | disposition still patient (30) | LOC: PAVA 09:35 | PROVIDERS: ADMIT Internal Medicine; ATTEND Internal Medicine ==

== ENCOUNTER 2020-06-08 11:03 | Outpatient (CLI) | payer OTHER | END 2020-06-08 21:31 | disposition home or self-care (01) | LOC: LAB 11:03 | PROVIDERS: ATTEND Internal Medicine | DX: F33.9 Major depressive disorder, recurrent, unspecified (principal); M85.80 Other specified disorders of bone density and structure, unspecified site; G40.89 Other seizures; Z79.899 Other long term (current) drug therapy | CPT/HCPCS: 80162 ==

== ENCOUNTER 2020-06-11 07:29 | Outpatient (CLI) | payer OTHER ==
[2020-06-11 08:03] LABS: POTASSIUM 4.5 mmol/L (3.6-5.2)
== END 2020-06-11 20:22 | disposition home or self-care (01) ==
LOC: LAB 07:29
PROVIDERS: ATTEND Internal Medicine
DX: J18.1 Lobar pneumonia, unspecified organism (principal); R13.12 Dysphagia, oropharyngeal phase; F03.90 Unspecified dementia, unspecified severity, without behavioral disturbance, psychotic disturbance, mood disturbance, and anxiety; E11.9 Type 2 diabetes mellitus without complications; Z51.81 Encounter for therapeutic drug level monitoring; M85.80 Other specified disorders of bone density and structure, unspecified site; G40.89 Other seizures
CPT/HCPCS: 80053; 80164; 82306; 82542; 84443

== ENCOUNTER 2020-07-05 10:03 | Outpatient (CLI) | payer OTHER | END 2020-07-05 21:51 | disposition home or self-care (01) | LOC: RAD 10:03 | PROVIDERS: ATTEND Internal Medicine | DX: R05 Cough (principal) ==

== ENCOUNTER 2020-07-08 12:06 | Inpatient (IN) | payer OTHER | END 2020-08-08 13:24 | disposition still patient (30) | LOC: PAVA 12:06 | PROVIDERS: ADMIT Internal Medicine; ATTEND Internal Medicine ==

== ENCOUNTER 2020-08-08 14:19 | Inpatient (IN) | payer OTHER | END 2020-09-07 08:00 | disposition still patient (30) | LOC: PAVA 14:19 | PROVIDERS: ADMIT Internal Medicine; ATTEND Internal Medicine ==

== ENCOUNTER 2020-09-07 09:00 | Inpatient (IN) | payer OTHER | END 2020-10-08 08:00 | disposition still patient (30) | LOC: PAVA 09:00 | PROVIDERS: ADMIT Internal Medicine; ATTEND Internal Medicine ==

== ENCOUNTER 2020-09-11 08:07 | Outpatient (CLI) | payer OTHER | END 2020-09-11 23:00 | disposition home or self-care (01) | LOC: LAB 08:07 | PROVIDERS: ATTEND Internal Medicine | DX: E11.9 Type 2 diabetes mellitus without complications (principal) | CPT/HCPCS: 83036 ==

== ENCOUNTER 2020-10-08 09:00 | Inpatient (IN) | payer OTHER | END 2020-11-08 09:08 | disposition still patient (30) | LOC: PAVA 09:00 | PROVIDERS: ADMIT Internal Medicine; ATTEND Internal Medicine ==

== ENCOUNTER 2020-11-05 07:08 | Inpatient (IN) | payer OTHER ==
[~2020-11-05] VITALS: Ht 162.6 cm; Wt 53.1 kg
[2020-11-05] VITALS (12 sets, daily range): BP systolic 88–151; BP diastolic 39–95; TEMP 98–100.3
[2020-11-05 07:53] LABS: PLATELET COUNT 462 K/uL (152-353)
[2020-11-05 08:03] LABS: POTASSIUM 4.8 mmol/L (3.6-5.2); SODIUM 142 mmol/L (136-145)
[2020-11-05 08:46] LABS: PARTIAL THROMBOPLASTIN TIME 26.4 SECONDS (24.5-33.6)
[2020-11-06] VITALS (13 sets, daily range): BP systolic 107–147; BP diastolic 33–64; TEMP 97.1–99.2
[2020-11-06 05:14] LABS: PLATELET COUNT 323 K/uL (152-353)
[2020-11-06 06:06] LABS: POTASSIUM 4.6 mmol/L (3.6-5.2)
[2020-11-07] VITALS (8 sets, daily range): BP systolic 108–139; BP diastolic 33–55; TEMP 97.6–98.6
[2020-11-07 04:32] LABS: PLATELET COUNT 300 K/uL (152-353)
[2020-11-07 04:58] LABS: POTASSIUM 3.8 mmol/L (3.6-5.2)
[2020-11-08] VITALS (9 sets, daily range): BP systolic 113–131; BP diastolic 40–56; TEMP 96.5
[2020-11-08 06:29] LABS: PLATELET COUNT 284 K/uL (152-353)
[2020-11-08 06:46] LABS: POTASSIUM 3.3 mmol/L (3.6-5.2)
--- NOTE | 2020-11-09 04:31 | NUR ---
ALL PATIENT 2100 MEDICATIONS WERE GIVEN IN ER. PATIENT CMP WAS RE-DRAWN TO EVALUATE ELECTROLYTE PROTOCOL STAUMariajose
--- NOTE | 2020-11-09 04:32 | NUR ---
PATIENT WAS ASSESED ADD PATIENT IS CLEAM DRY AND INTACT. PATIETN IV SITE IS CLEAN AND ON AN ARM BOARD. PATIENT DENIES PAIN. PATIENT STATES, "I WANT TO GO HOME". PATIENT BED ALARM IS ON AND PATIDALILA HAS NO WOUND ONLY REDNESS TO HER SACRUM AND LOWER BACK
[2020-11-09 05:04] LABS: POTASSIUM 4.2 mmol/L (3.6-5.2)
[2020-11-09 05:26] LABS: PLATELET COUNT 302 K/uL (152-353)
--- NOTE | 2020-11-09 05:42 | NUR ---
POTASSIUM IS WNL AND NOTIFIED
[2020-11-09 05:49] VITALS: BP 135/52; TEMP 100.1; Ht 162.6 cm; Wt 53.1 kg
[2020-11-09 07:20] VITALS: BP 127/54; TEMP 98.7
--- NOTE | 2020-11-09 08:26 | NUR ---
TO OPERATING ROOM FOR EGD WITH PEG TUBE PLACEMENT
--- NOTE | 2020-11-09 10:03 | NUR ---
RECIEVED BACK FROM OPERATING ROOM FROM PEG TUBE PLACEMENT. NO DISTRESSS NOTED. VSS, PT RESTING WITH EYES CLOSED
[2020-11-09 11:20] VITALS: BP 151/73; TEMP 99.5
[2020-11-09 16:47] LABS: POTASSIUM 3.8 mmol/L (3.6-5.2)
[2020-11-09 19:20] VITALS: BP 152/72; TEMP 99.2
--- NOTE | 2020-11-09 20:20 | NUR ---
KITCHEN FOOD ASSEMBLER NOTIFIED THE ER MD DUE TO CLARIFIYING MEDICATION ORDERS FOR KEPPRA AND DEPAKOTE. THE TWO STATED MEDICATIONS WERE NOTED TO NOT BE CRUSHED. THE PATIENT NOTED THAT SHE WAS UNABLE TO SWALLOW ANY MEDICATION BY MOUTH. THE ER MD ADVISED KITCHEN FOOD ASSEMBLER TO NOTIFY DR. MAYBERRY FOR CLARIFICATION ON PEG TUBE USE HE DIDN'T FEEL COMFORTABLE GIVING ME ORDERS REGARDING THIS PATIENT SINCE HE DIDN'T ACTUALLY DO THE PEG TUBE PLACEMENT PROCEDURE. DR. MAYBERRY WAS NOTIFIED BY KITCHEN FOOD ASSEMBLER WITH ORDERS GIVEN TO ONLY USE PEG TUBE FOR MEDICATIONS AND TO FLUSH WITH 30ML'S BEFORE AND 30ML'S OF WATER AFTER MEDICATION ADMINSTRATION. HE ADVISED ME TO PROCEED WITH ADMINISTERING ALL MEDICATION CRUSHED AT THIS TIME. HE ALSO STATED, "I WROTE ORDERS ON A YELLOW/BROWN SHEET IT SHOULD BE IN HER CHART PLEASE REFER TO THEM FOR ANY OTHER CONCERNS." KITCHEN FOOD ASSEMBLER VOICED UNDERSTANDING. NO DISTRESS NOTED, WILL CONTINUE TO MONITOR FOR HEALTH STATUS CHANGES.
[2020-11-10] VITALS (7 sets, daily range): BP systolic 129–160; BP diastolic 52–69; TEMP 98.3–100.2
--- NOTE | 2020-11-10 01:15 | NUR ---
ORDERS RECEIVED TO ADMINSTER TYLENOL 500MG VIA PEG TUBE NOW AND TYLENOL 500MG PRN EVERY SIX HOURS FOR AN ELEVATED BODY TEMPERATURE OF 101.[address] REICH. ORDERS HAVE BEEN READ BACK AND VERIFIED AND CARRIED OUT BY [employer]. NO ACUTE DISTRESS NOTED BY [employer] WILL CONTINUE TO MONITOR.
--- NOTE | 2020-11-10 02:02 | NUR ---
FOLLOW UP POST TYLENOL 500MG VIA PEG TUBE ADMINISTRATION TEMPERATURE IS 98.7 AXILLARY. PT IS ALERT TO SELF VOICED NO C/O PAIN AT THE TIME WITH NO ACUTE DISTRESS NOTED. WILL CONTINUE TO MONITOR FOR HEALTH STATUS CHANGES.
[2020-11-10 04:40] LABS: PLATELET COUNT 302 K/uL (152-353)
[2020-11-10 04:51] LABS: POTASSIUM 3.7 mmol/L (3.6-5.2)
--- NOTE | 2020-11-10 09:00 | NUR ---
IN PT RM FOR MORNING MED PASS AND ASSESSMENT, PT LYING IN HF, NAD NOTED, PT RESTING WITH EYES CLOSED, PT IS LETHARGIC BUT DOES RESPOND TO VERBAL STIMULI WITH GARBLED SPEECH, NC ON AT 2L O2, MEDS CRUSHED AND ADMINISTERED VIA PEG, NO RETURN NOTED, PEG FLUSHED WITH 30ML WATER, MEDS ADMINISTERED IN 30ML OF WATER AND FLUSHED AGAIN WITH 30ML OF WATER, PT TOLERATED WELL, ATTEMPTED TO PERFORM MOUTH CARE AND PT REFUSED STATES "LEAVE ME ALONE," NO FURTHER NEEDS AT THIS TIME, CALL LIGHT WITHIN REACH, WILL CONTINUE TO MONITOR
--- NOTE | 2020-11-10 11:04 | NUR ---
IN PT RM TO CHANGE BRIEF, PT LYING ON LT SIDE RESTING WITH EYES CLOSED, NAD NOTED, PT NOTED TO HAVE MODERATE AMOUNT OF VAGINAL BLEEDING, PT GROANED WHILE TURNING AND CLEANING PT, REPOSITIONED PT UP IN BED, NO FURTHER NEEDS AT THIS TIME, CALL LIGHT WITHIN REACH
--- NOTE | 2020-11-10 17:16 | NUR ---
IN PT RM TO ADMINISTER AFTERNOON MEDS AND GIVE GLUCERNA, PT LYING IN HF RESTING WITH EYES CLOSED, NAD NOTED, PEG HAD NO RETURN NOTED, PEG FLUSHED WITH 30ML WATER, MEDS ADMINISTERED AND FLUSHED WITH 30ML MORE OF WATER, 237ML OF GLUCERNA ADMINISTERED WITHOUT DIFFICULTY, FLUSHED PEG WITH 160ML OF WATER, 487ML TOTAL OF FLUIDS ADMINISTERED VIA PEG, NO FURTHER NEEDS AT THIS TIME, CALL LIGHT WITHIN REACH
[2020-11-11 04:00] VITALS: BP 140/47; TEMP 99.2
[2020-11-11 04:44] LABS: PLATELET COUNT 319 K/uL (152-353)
[2020-11-11 04:45] LABS: POTASSIUM 3.6 mmol/L (3.6-5.2)
[2020-11-11 07:20] VITALS: BP 122/71; TEMP 101.2
--- NOTE | 2020-11-11 09:00 | NUR ---
IN PT RM TO ADMINISTER MORNING MEDS, PT RESTING WITH EYES CLOSED, NAD NOTED, PT WILL ALERT TO VERBAL STIMULI, NC ON AT 3L, NO RETURN NOTED FROM PEG, FLUSHED PEG WITH 30ML OF WATER AND INSTILLED MEDS WITH 100ML OF WATER, FLUSHED PEG WITH 30ML OF WATER WITHOUT DIFFICULTY, GAVE TYLENOL FOR TEMP OF 101.2, DR. MOSHER ORDERS IN AND OUT CATH TO OBTAIN FOR UA, NO FURTHER ORDERS GIVEN, CALL LIGHT WITHIN REACHN
[2020-11-11 11:20] VITALS: BP 107/42; TEMP 99.8
[2020-11-11 15:20] VITALS: BP 135/55; TEMP 98.4
--- NOTE | 2020-11-11 16:00 | NUR ---
IN PT RM TO ADMINISTER GLUCERNA AND MEDS THROUGH PEG, NO RETURNED NOTED, PEG FLUSHED WITH 30ML WATER AND MEDS ADMINISTERED WITH 60ML OF WATER AND FLUSHED AGAIN WITH 30ML OF WATER, ADMINISTERED 237ML OF GLUCERNA WITHOUT DIFFICULTY, AND FLUSHED PEG WITH 100ML OF WATER,PT TOLERATED WELL, PT HOB AT 40 DEGREES, NAD NOTED, NONLABORED BREATHING, CALL LIGHT WITHIN REACH
--- NOTE | 2020-11-11 19:13 | NUR ---
INFORMED DR. HOFF OF PT HAVING LOOSE STOOLS AFTER EACH FEEDING, DR. HOFF ORDERS TO HOLD FEEDINGS TONIGHT AND SHE WILL REASSES SITUTAION IN THE AM, NO FURTHER ORDERS GIVEN AT THIS TIME
[2020-11-11 20:00] VITALS: BP 144/57; TEMP 98.4
[2020-11-12] VITALS: BP 151/53; TEMP 98.5
[2020-11-12 04:00] VITALS: BP 152/45; TEMP 98.8
[2020-11-12 05:19] LABS: PLATELET COUNT 340 K/uL (152-353)
[2020-11-12 07:20] VITALS: BP 129/56; TEMP 98.8
--- NOTE | 2020-11-12 07:45 | NUR ---
PT LYING IN HF RESTING WITH EYES CLOSED, NAD NOTED, NONLABORED BREATHING, CALL LIGHT IS WITHIN REACH, WILL CONTINUE TO MONITOR
--- NOTE | 2020-11-12 09:45 | NUR ---
IN PT RM FOR MORNING ASSESSMENT AND MEDS, PT LYING IN HF, PT RESPONDING TO VERBAL STIMULI, PT IS MORE ALERT THIS AM AND RESPONDED WITH GOOD MORNING WITH GARBLED SPEECH, ASKED PT IF SHE KNEW WHERE SHE WAS, PT REPSONDED BUT UNABLE TO UNDERSTAND I ASKED IF SHE KNEW SHE WAS IN HOSPTIAL PT STATES "YEA," PT GAZE IS FOCUSED THIS AM, MEDS ADMINISTERED VIA PEG, NO RETURN NOTED, PEG FLUSHED WITH 30ML AND MEDS ADMINISTERED WITH 60ML OF WATER AND FLUSHED PEG WITH 30ML OF WATER WITHOUT DIFFICULTY, PT HAS NO NEEDS AT THIS TIME, CALL LIGHT WITHIN REACH, WILL CONTINUE TO MONITOR
[2020-11-12 11:20] VITALS: BP 119/46; TEMP 98.2
--- NOTE | 2020-11-12 11:37 | NUR ---
IN PT RM FOR FEEDING, DR. HOFF ORDERS TO GIVE HALF AMOUNT OF GLUCERNA AT THIS TIME AND MONITOR FOR LOOSE BM, NO RETURN NOTED, FLUSHED PEG WITH 30ML OF WATER, GAVE 115ML OF GLUCERNA WITHOUT DIFFICULTY, FLUSHED PEG WITH 90ML OF WATER, PT TOLERATED WELL, WILL CONTINUE TO MONITOR
--- NOTE | 2020-11-12 12:00 | NUR ---
IN PT RM TO CHANGE BRIEF DUE TO PT HAVING BM, MODERATE AMOUNT OF SOFT STOOL NOTED, BRIEF AND CHUX CHANGED, PT NOTED TO HAVE REDDNESS THAT IS BLANCHABLE AND SKIN TEARS NOTED ON BUTTOCKS, CALAZIME CREAM APPLIED TO AREA, PLACED PT ON LT SIDE AND HOB AT 35 DEGREES, PULLED PT UP IN BED WITH EXT ASSIST X 2, NOTIFIED DR. HOFF OF PT HAVING BM AFTER FEEDING AND SHE ORDERS TO ADD BANATROL + TO EACH FEEDING AND MONITOR BM'S, NO FURTHER NEEDS AT THIS TIME, CALL LIGHT WITHIN REACHN
--- NOTE | 2020-11-12 15:30 | NUR ---
IN PT RM TO CHANGE BRIEF AND SHEETS, PT HAVING A PERIOD OF APNEA UPON ENTERING THE RM, PT AROUSED ONCE VERBALLY STIMULATED, PT BECAME COMBATIVE WHEN CHANGING BRIEF AND SHEETS, PT WIPED DOWN AND CLEANED, PT HAVING AGONAL BREATHING, PT LYING IN LF WITH LEGS ELEVATED, NO FURTHER NEEDS AT THIS TIME
[2020-11-12 16:00] VITALS: BP 166/64; TEMP 98.2
--- NOTE | 2020-11-12 17:00 | NUR ---
IN PT RM TO ADMINISTER FEEDING AND MEDS, PT LYING IN HF, NAD NOTED, NONLABORED BREATH, RESTING WITH EYES CLOSED, NO RESIDUAL NOTED ON RETURN FROM PEG ADMINISTERED MED WITH 90ML WATER, MIXED GLUCERNA WITH BANATROL AND PRODUCT FORMED CLUMPS, WHEN ATTEMPTING TO INSTILL GLUCERNA PEG TUBE BECAME CLOGGED, UNCLOGGED TUBE AND FLUSHED PEG WITH 100ML WATER, PT TOLERATED WELL, NOTIFED DR. HOFF OF BANATROL NOT ABLE TO BE USED, SHE STATES TO TRY TO DISSOVLE IT IN WARM WATER, NO FUTHER ORDERS GIVEN
--- NOTE | 2020-11-12 18:31 | NUR ---
IN PT RM TO GIVE BANATROL PLUS MIXED IN 200ML WATER, PEG FLUSHED WITH 50ML WATER WITHOUT DIFFICULTY, BANATROL PLUS GIVEN WITHOUT DIFFICULTY, PT TOLERATED WELL, MOUTH CARE DONE AT THIS TIME, GOWN CHANGED AND PT TURNED TO RT SIDE, NO FURTHER NEEDS AT THIS TIME, CALL LIGHT WITHIN REACH, WILL CONTINUE TO MONITOR
[2020-11-12 19:20] VITALS: BP 153/51; TEMP 99.1
--- NOTE | 2020-11-12 21:03 | NUR ---
SHIFT ASSESSMENT COMPLETED. RESIDUAL WAS CHECKED PRIO TO GIVING MEDS AND 0 ML WERE NOTED ON RETURN. PATIENT GIVEN 1 CARTON OF GLUCERNA PLUS BANATROL 240 ML TOTAL. PATIENT KEPT ABOVE 30 DEGREES DURING FEEDINGS. PATIENT TOLERATED IT WELL.
[2020-11-13] VITALS (7 sets, daily range): BP systolic 121–185; BP diastolic 62–83; TEMP 96.9–99.3
--- NOTE | 2020-11-13 00:12 | NUR ---
TECH IN THE ROOM FOR MIDNIGHT VITALS AND CALLED NURSES STATION STATED PATIENT WAS COUGHING UP SOMETHING. ON ASSESSMENT PATIENT WAS NOT COUGH BUT VITALS SHOWED A SPO2 OF 79%. AUDIBLE RHONCI NOTED AND PATIENT CUED TO COUGH TO ATTEMPT AND EXPEL MUCOUS AND SEE IF THAT WOULD HELP WITH INCREASING O2 SATS. PATIENT DID ATTEMPT 3 STRONG COUGHS BUT WAS UNABLE TO CLEAR SECRETIONS AND 02 SATS REMAINED AT 80%. 02 TITRATED UP TO 6 LPM WITH NO CHANGE. RESPIRATORY THERAPIST WAS NOTIFIED FOR A SIMPLE MASK. FREIGHT INSPECTOR AND RT AT BEDSIDE. PATIENT PLACED ON NON REBREATHER AND 02 SATS CAME UP TO 84% ONLY. PATIENT AGAIN ENCOURGED TO COUGH BUT UNABLE TO. RT USED YANKEUR TO SUCTION SECRETIONS AND WHILE SUCTION AROUND PATIENT GAGGED AND WAS ABLE TO COUGH SEVERAL TIMES AND WITH MODERATE AMOUNTS OF SECRETIONS REMOVED FROM HER MOUTH. PATIENTS 02 SATS IMPROVED TO 96%.
--- NOTE | 2020-11-13 12:12 | NUR ---
11/23/20 1210 GLUCERNA 1.2 ML PEGTUBE FEEDING WITH MEDICATIONS.FLUSHED WITH 250ML H2O TOLERATED WELL.CC
--- NOTE | 2020-11-13 13:32 | NUR ---
11/13/20 1315 RESTING IN BED WEARING NONREBREATHER TOLERATING WELL.CALL LIGHT WITHIN REACH.CC
--- NOTE | 2020-11-13 17:31 | NUR ---
11/13/20 1725 RESIDUAL 60ML FROM PEG TUBE,FLUSHED WITH 30ML H20.GIVE MEDICATIONS WITH 1/2 PACK POTATOE FLAKES TOLERATED WELL.CC
--- NOTE | 2020-11-13 18:10 | NUR ---
11/13/201749 DAUGHTER KARTHIKEYAN CABRERA CALLED TO NURSING STATION TO CHECK ON MOTHER,UPDATED ON PT CARE.DAUGHTER STATED SHE WILL CALL BACK TOMORROW.CC
--- NOTE | 2020-11-13 18:48 | NUR ---
11/13/20 184 RESTING QUEITLY WITH EYES CLOSED WEARING NONREBREATHER.NAD NOTED.CALL LIGHT WITHIN REACH.CC
--- NOTE | 2020-11-13 19:33 | NUR ---
11/13/201829 PEGTUBE FEEDING 240/250ML FLUSH 120ML WITH BANANA FLAKES/240 H20 TODAY.
--- NOTE | 2020-11-13 21:00 | NUR ---
PT WAS GIVEN 0NE CONTAINER OF 1.2 GLUCERNA GIVEN VIA PEG TUBE. 250 ML OF WATER WAS GIVEN FLUSH.
[2020-11-14 03:20] VITALS: BP 126/63; TEMP 97.9
--- NOTE | 2020-11-14 03:40 | NUR ---
PT HAS BEEN REPOSITIONED IN BED. PT USING NRB MASK. PT IS DNR STATUS. [facility]
--- NOTE | 2020-11-14 06:35 | NUR ---
PT WAS REASSESSED. PT WITH REDDENED AREA TO BUTTOCKS. PT WAS CLEANED AND CLEAN BRIEFS APPLIED.
[2020-11-14 07:20] VITALS: BP 205/112; TEMP 99.7
--- NOTE | 2020-11-14 09:02 | NUR ---
11/14/20 0800 TO ROOM PT BREATHING LABORED WITH GARGLING TRIED TO SUCTION WITH YANKER SUCTION UNABLE TO GET ANYTHING OUT.PCT REPORTED B/P 208/117.RESP NOTIFIED TO EVAVULATE PT.CC 11/14/20 08 RESP PRESENT IN ROOM TO EVALUTE OXYGEN CHECKED AND SHOWED 69 PERCENT HEART RATE 140.TOLD HER I WILL CALL DR. JUDD. 11/14/[address] JUDD NOTIFIED OF PT B/P AND ALSO OXYGEN LEVEL.DR. JUDD STATED FOR PT TO BE PUT ON HIGH FLOW AND TO BE DEEP SUCTIONED.CC 11/14/[address] JUDD STATED TO GIVE LABETOLOL 2MG NOW FOR B/P. 11/14/20 0850 RECHECKED B/P PRIOR TO GIVING LABETOLOL 20MG 85/50 P 130 OXYGEN 88 PERCENT ON HIGH FLOW.PT RESTING MORE CALMLY AT THIS TIME.
--- NOTE | 2020-11-14 09:42 | NUR ---
0830 Pt PLACED ON HHFNC AT THIS TIME PER DR ORDERS. HIGH FLOW 50L FIO2 100% TEMP 31 DEGREES. Pt SpO2 INCREASED TO 93%. DR ALSO REQUESTED Pt BE DEEP SUCTIONED AT THIS TIME. ONCE SpO2 INCREASED Pt WAS DEEP SUCTIONED THIN WHITE SECRETIONS WERE SUCTIONED.Pt RESTING COMFORTABLY. LLJ WAREHOUSE SUPERVISOR 3RD SHIFT
--- NOTE | 2020-11-14 11:30 | NUR ---
CRITICAL CALLED TO FLOOR BY [facility]. NEWLY DEVELOPED RIGHT LUNG WITH COMPLETE ATELECTASIS FROM SECRETIONS WITH CARDIOMEDIALSTINAL DISPLACEMENT.
[2020-11-14 12:00] VITALS: BP 96/52; TEMP 98.8
--- NOTE | 2020-11-14 12:08 | NUR ---
11/14/20 1125 AMIODARONE DRIP STARTED PER DR. JUDD ORDERS 150/100MG OVER 10 MINUTES. 11/14/20 1135 AMIODARONE DRIP 360MG/200ML AT 33.3 RATE TOLERATING WELL.CC
--- NOTE | 2020-11-14 12:45 | NUR ---
11/14/20 1245 AMIODARONE DRIP IN PROGRESS AT 33.3.CC
--- NOTE | 2020-11-14 13:32 | NUR ---
11/14/20 1333 RESTING WITH HF RESP EVEN NONLABORED DRIP IN PROGRESS.VITAL SIGNS WNL.CC
--- NOTE | 2020-11-14 14:51 | NUR ---
11/14/20 1450 AWAKE AT WINDOW TO SPEAK WITH STATED HE WILL BE GLAD TO GET HER HOME.CALL LIGHT WITHIN REACH.CC
--- NOTE | 2020-11-14 14:56 | NUR ---
11/14/20 1440 RESTING RESP EVEN NONLABORED HIGH FLOW IN PLACE ON PATIENT.OXYGEN SATURATION 94 PERCENT.CALL LIGHT WITHIN REACH.CC 11/14/20 1420 SPOKE WITH DAUGHTER KARTHIKEYAN CABRERA EXPLAINED TO HER THAT DR. JUDD ORDERED FOR HER TO BE PLACED ON HIGH FLOW DUE TO PT HAVING LABORED BREATHING AND OXYGEN SATURATION 60-70 PER RESP WHEN THEY CHECKED IT.ALSO LET HER KNOW THAT PT IS ON A AMIIDARONE DRIP TO HER HEART RATE 138-140.KARTHIKEYAN HER DAUGHTER STATED SHE APPRECIATES THAT WE ARE TAKING CARE OF HER.CC
[2020-11-14 16:00] VITALS: BP 121/69; TEMP 100
--- NOTE | 2020-11-14 16:03 | NUR ---
11/14/20 1600 PT TURNED AND REPOSTIONED SMALL BM WITH VOID.PT COUGHING UP MODERATE AMOUNT THICK WHITE MUCUS YANKER SUCTION USED.APPROX 50ML.HIGH FLOW OXYGEN IN PLACE 91 PERCENT.CC
--- NOTE | 2020-11-14 16:24 | NUR ---
11/14/20 1620 PT TUBE FEEDING GLUCERNA 1.2 GIVEN WITH 50ML BEFORE AND 50ML AFTER FEEDING TOLERATED WELL.CC
[2020-11-14 20:00] VITALS: BP 113/58; TEMP 99
[2020-11-14 23:20] VITALS: BP 142/60; TEMP 98.7
[2020-11-15 03:54] VITALS: BP 118/49; TEMP 98.8
[2020-11-15 04:43] LABS: PLATELET COUNT 487 K/uL (152-353)
[2020-11-15 07:20] VITALS: BP 122/50; TEMP 99.6
--- NOTE | 2020-11-15 09:00 | NUR ---
IN PT RM FOR MORNING ASSESSMENT AND MED PASS, PT LYING IN HF WITH SHALLOW BREATHING, PT RESPONDED TO VERBAL STIMULI BY GROANING, PEG NOTED TO HAVE 20ML RESIDUAL ON RETURN, FLUSHED PEG WITH 30ML OF WATER AND ADMINISTED MEDSS WITH 60ML OF WATER, FLUSHED PEG AGAIN WITH 30ML WATER WITHOUT DIFFICULTY, ADMINISTERED GLUCERNA 1.2 AND FLUSHED PEG WITH 50ML OF WATER, PT TOLERATED WELL
--- NOTE | 2020-11-15 09:20 | NUR ---
PT IV NOTED TO BE LEAKING AT THIS TIME, STOPPED AMIODARONE INFUSION, REMOVED 22 LT FA WITH CATHETER INTACT AND 22 TO RT FA WITH CATHETER INTACT, NEW IV INSERTED TO LT FA X3 STICKS, PT TOLERATED WELL, NOTIFIED DR. SNYDER OF IV INFILRATION SHE STATES TO CONTINUE IV AMIODARONE A FEW HOURS PAST 1140, DR. SNYDER ALSO ORDERS RESPIRATORY CPT Q4HRS, CHEST XRAY IN THE AM, AND A DIETARY CONSULT, NO FURTHER ORDERS GIVEN AT THIS TIMEN
[2020-11-15 11:20] VITALS: BP 100/61; TEMP 99.9
--- NOTE | 2020-11-15 14:45 | NUR ---
IN RM TO CHANGE BRIEF DUE TO PT URINATING, PT LYING IN HF, SHALLOW BREATHING, PT RESTING WITH EYES CLOSED, BRIEF CHANGE AND PT SUCTIONED DUE TO HAVING THICK MUCOUS NOTED ON MOUTH, PT PLACED ON RT SIDE AT THIS TIME, CALL LIGHT WITHIN REACH, WILL CONTINUE TO MONITOR
[2020-11-15 15:20] VITALS: BP 100/45; TEMP 97.9
--- NOTE | 2020-11-15 16:32 | NUR ---
Screened for RD to access: I talked with nursing 2 times a few minutes ago on the phone. Patient per nurse came from the [place] and has Dixgnosis of HTN, Seizures. Hypothyroidism, CKD, Diabetes, Pancreatic Insufficiency and see EMR for more details and informaiton kesha is presently on Glucerna 1.5 at 3 cans per day and goal is 5 cans per day and 150 ml/cc of fluids 6 x q day and also d/x of pneumonia, afib withRVR and WBC, MCV, RDW, platelt count, CO2, Creat, gl, alt, t protien and alb all abnormal as well as HGB, HCT, MCHC and RBC. reviewed all labs and medications. Admitted at 5'4" at 121.4 lbs. and is now at 116 lbs. wiht a decrease of 5.4 lbs. and 5 cans a day = 1200 ml/cc/1800 kcal, protein 76 grams and fluids 948 cc/ml + = 1848 ml/cc per day. Also GERD, MR IQ 50 to 70, IBW = 120+/-10% (108 to 132 lbs.) and kcal needs x 25 = 1400, x 30 = 1600, x 35 = 1900, x 40 = 2200 kcal/day, ptortein neeeds x .8 to 1.5 = 44 to 82 grams per day and fluids x 25 to 40 = 1400 to 17533 ml/cc per day and is97% of IBW and BMI at 19.9 [address] Recommednations: 1-Add a MVI liquid until receiving 50 ml/cc q hour x 24 hours or 5 cans a day and then can d/c MVI 2-Goal 5 cans a day and flush with 150 ml/cc 6 x q day 3-ST, PT and OT to work with the patient as tolerated. 4-Add Vitamin C 500 mg BID 5-Add ZNSO4 220 gm per dya and d/c in [address] available as needed.
--- NOTE | 2020-11-15 17:00 | NUR ---
IN PT RM FOR PM FEEDING AND MED PASS, PT LYING IN HF ON RT SIDE, NAD NOTED, SMALL AMOUNT OF RESIDUAL NOTED IN TUBING ON RETURN, FLUSHED PEG WITH 30ML WATER, INSTILLED MEDCATION WITH 30ML OF WATER AND FLUSHED PEG WITH 30ML WATER WITHOUT DIFFICULTY, GAVE 237ML GLUCERNA 1.2 AND FLUSHED PEG WITH 100ML WWATER WITHOUT DIFFICULTY, PT TOLERATED WELL, REPOSITIONED PT TO LT SIDE, NO FURTHER NEEDS AT THIS TIME, CALL LIGHT WITHIN REACH, WILL CONTINUE TO MONITOR
[2020-11-15 20:00] VITALS: BP 120/46; TEMP 96.8
--- NOTE | 2020-11-15 20:44 | NUR ---
TX NOT GIVEN AT THIS TIME ON HOLD TILL CLARIFY ORDERS, PT CHEST XRAY SAYS COVID.
[2020-11-16] VITALS: BP 137/54; TEMP 97.2
[2020-11-16 04:00] VITALS: BP 146/57; TEMP 97.8
[2020-11-16 04:32] LABS: PLATELET COUNT 466 K/uL (152-353)
[2020-11-16 04:36] LABS: POTASSIUM 4.7 mmol/L (3.6-5.2)
--- NOTE | 2020-11-16 06:07 | NUR ---
Pt resting in bed with eyes closed. Pt noted with thick mucous secreations and was suctioned with good results and benefits. Good incontinent care provided. Turned and repositioned onto left side. No distress noted at this time.
[2020-11-16 07:20] VITALS: BP 152/69; TEMP 98.8
--- NOTE | 2020-11-16 09:00 | NUR ---
IN PT RM TO ADMINISTER MORNING MEDS AND MORNING ASSESSMENT, PT LYING IN HF, SHALLOW BREATHING, NAD NOTED, PT NOTED TO HAVE THICK SECRETIONS IN MOUTH, SUCTIONED PT, NO RESIDUAL NOTED IN PEG, FLUSHED PEG WITH 30ML WATER GAVE MEDICATION WITH 60ML OF WATER AND FLUSHED PEG WITH 30ML WATER, GAVE GLUCERNA 1.5 237ML AND FLUSHED WITH 100ML OF WATER WITH BANATROL PLUS WITHOUT DIFFICULTY, PT TOLERATED WELL, REPOSITIONED PT TO LT SIDE AND HOB >30 DEGREES, NO FURTHER NEEDS AT THIS TIME, CALL LIGHT WITHIN REACH, WILL CONTINUE TO MONITOR
[2020-11-16 11:20] VITALS: BP 122/60; TEMP 110.1
--- NOTE | 2020-11-16 13:30 | NUR ---
IN PT RM TO ADMINISTER AFTERNOON MED AND FEEDING, PT LYING IN HF, SHALLOW BREATHING, NAD NOTED, >50ML RESIDUAL NOTED FROM PEG, GLUCERNA 1.5 FEEDING HELD AT THIS TIME , PEG FLUSHED WITH 20ML AND MEDCIATION GIVEN PEG FLUSHED AGAIN WITH 20ML WATER WITHOUT DIFFICULTY, NOTIFIED OF RESIDUAL, NO NEW ORDERS GIVEN AT THIS TIME
--- NOTE | 2020-11-16 14:09 | NUR ---
PATIENT PLACED ON NRB
--- NOTE | 2020-11-16 14:12 | NUR ---
PATIENT 98% WITH HR 107 ON NRB.
--- NOTE | 2020-11-16 16:30 | NUR ---
IN PT RM FOR AFTERNOON MED AND FEEDING, PT LYING NO LT SIDE IN HF, SHALLOW BREATHING, NAD NOTED, NON-REBREATHER ON, 2ML RESIDUAL NOTED FROM PEG, PEG FLUSHED WITH 30ML WATER, MEDICATIONS GIVEN WITH 60ML OF WATER AND FLUSHED AGAIN WITH 30ML WATER, 220ML OF GLUCERNA 1.5 GIVEN AND FLUSHED WITH 100ML WATER WITHOUT DIFFICULTY, PT REPOSITIONED TO RT SIDE, NO FURTHER NEEDS AT THIS TIME, WILL CONTINUE TO MONITOR
[2020-11-16 20:00] VITALS: BP 116/54; TEMP 99.1
[2020-11-17] VITALS: BP 127/65; TEMP 100.7
[2020-11-17 04:51] LABS: POTASSIUM 4.6 mmol/L (3.6-5.2)
[2020-11-17 04:57] VITALS: BP 98/44; TEMP 102.2
[2020-11-17 05:21] LABS: PLATELET COUNT 506 K/uL (152-353)
[2020-11-17 07:20] VITALS: BP 116/45; TEMP 97.1
[2020-11-17 11:20] VITALS: BP 118/42; TEMP 100.4
[2020-11-17 15:20] VITALS: BP 123/48; TEMP 98.7
--- NOTE | 2020-11-17 15:40 | NUR ---
PATIENT HAD VERY LARGE LOOSE BM. PATIENT CHANGED AND CLEANED BY CLOTH FEEDER AND PCT. PATIENT TOLERATED WELL. NAD NOTED. PATIENT ON NRB.
== END 2020-11-17 18:30 | disposition short-term general hospital (02) | DRG 177 ==
LOC: ED 07:08 → MED/SURG 11-08 22:00
PROVIDERS: Family Medicine; Internal Medicine; Internal Medicine Endocrinology, Diabetes & Metabolism; ADMIT Internal Medicine; ATTEND Internal Medicine
PROC: 0DH63UZ Insertion of Feeding Device into Stomach, Percutaneous Approach (ICD-10-PCS; principal; 2020-11-09)
DX: U07.1 COVID-19 (principal); J96.01 Acute respiratory failure with hypoxia; E43 Unspecified severe protein-calorie malnutrition; J12.82 Pneumonia due to coronavirus disease 2019; N17.8 Other acute kidney failure; E87.0 Hyperosmolality and hypernatremia; G40.802 Other epilepsy, not intractable, without status epilepticus; I48.91 Unspecified atrial fibrillation; Z20.822 Contact with and (suspected) exposure to COVID-19; Z68.20 Body mass index [BMI] 20.0-20.9, adult; E03.8 Other specified hypothyroidism; K21.9 Gastro-esophageal reflux disease without esophagitis; I12.9 Hypertensive chronic kidney disease with stage 1 through stage 4 chronic kidney disease, or unspecified chronic kidney disease; E11.22 Type 2 diabetes mellitus with diabetic chronic kidney disease; N18.30 Chronic kidney disease, stage 3 unspecified; R13.19 Other dysphagia; Y95 Nosocomial condition; E87.6 Hypokalemia; E83.39 Other disorders of phosphorus metabolism; E83.42 Hypomagnesemia; N93.8 Other specified abnormal uterine and vaginal bleeding; F70 Mild intellectual disabilities
CPT/HCPCS: 36415; 80048; 80053; 80202; 81000; 82550; 82948; 83605; 83735; 84100; 84443; 84484; 85007; 85027; 85610; 85730; 86140; 86769; 87040; 87635; 93005; 94640; 94664; 94668; 94760; 96360; 96365; 96366; 96374; 96375; 96376; 99285; J1956; J0132; J0282; J0456; J0696; J1650; J2001; J2185; J2270; J2704; J3370; J3475; J3480; J3490; U0003

== ENCOUNTER 2020-11-17 18:30 | Inpatient (IN) | payer OTHER ==
[~2020-11-17] VITALS: Ht 162.6 cm; Wt 49.1 kg
[2020-11-17 20:34] VITALS: BP 119/56; TEMP 101
--- NOTE | 2020-11-18 06:20 | NUR ---
PT HAS BEEN MEDICATED WITH ROXINOL DROPS X2 EVENTS. PT WITH EYES OPEN AND CAN MAKE VERBAL NOISES. PT HAS BEEN TURNED AND REPOSITIONED EVERY 2 HOURS. PRESENTLY ON HER LEFT SIDE. ORAL CARE GIVEN. PT HAS THICK YELLOW SECRETIONS COMING FROM MOUTH.
[2020-11-18 08:34] VITALS: BP 107/53; TEMP 100.1
[2020-11-18 20:28] VITALS: BP 163/53; TEMP 100.6
--- NOTE | 2020-11-19 01:54 | NUR ---
PT HAS BEEN RESTING. PT IS CALM. PT DOES HAVE EYES OPEN AT TIMES. NO MEDICATION HAS BEEN GIVEN SINCE 9PM ORDERED MEDS. PT IS RECEIVING CARE AND COMFORT MEASURES. PT IS BEING TURNED EVERY 2 HOURS AND PRN. ORAL CARE GIVEN.
[2020-11-19 08:34] VITALS: BP 117/60; TEMP 100
== END 2020-11-19 12:36 | disposition expired | DRG 177 ==
LOC: MED/SURG 18:30
PROVIDERS: ADMIT Internal Medicine; ATTEND Internal Medicine
DX: U07.1 COVID-19 (principal); J12.82 Pneumonia due to coronavirus disease 2019; J96.01 Acute respiratory failure with hypoxia